=== PATIENT | female | born 1930 | race Caucasian/White ===

== ENCOUNTER 2018-09-06 21:03 | Emergency (ER) | payer OTHER ==
[~2018-09-06] VITALS: Ht 167.6 cm; Wt 71.7 kg
--- NOTE | 2018-09-06 21:55 | NUR ---
PT BIB SON C/C LEFT LEG CRAMPING X 1730 TODAY, NO TRAUMA. NAD NOTED. RESP EVEN AND UNLABORED. PT ON MONITOR IN BED 1 WITH FAMILY AT BEDSIDE. WILL CONTINUE TO MONITOR.
[2018-09-06] MEDS ORDERED: IV NS 0.9% 1,000 ML BAG IV ONE (22:30)
[2018-09-06 22:35] LABS: BASOPHILS # (AUTO) 0.1 /CMM (0.0-0.2); BASOPHILS % (AUTO) 0.9 % (0.0-2.0); EOSINOPHILS % (AUTO) 2.2 % (0.0-6.0); HEMATOCRIT 42 % (33-45); HEMOGLOBIN 13.8 g/dL (11.5-14.8); LYMPHOCYTES # (AUTO) 2.2 /CMM (0.8-4.8); LYMPHOCYTES % (AUTO) 33.5 % (20.0-44.0); MEAN CORPUSCULAR HGB CONC 33 g/dl (31.0-36.0); MEAN CORPUSCULAR VOLUME 93 fL (82-100); MONOCYTES # (AUTO) 0.6 /CMM (0.1-1.30); MONOCYTES % (AUTO) 8.9 % (2.0-12.0); NEUTROPHILS # (AUTO) 3.5 /CMM (1.8-8.9); NEUTROPHILS % (AUTO) 54.5 % (43.0-81.0); PLATELET COUNT (AUTO) 205 /CMM (150-450); RED BLOOD CELL COUNT(AUTO) 4.47 MIL/uL (4.0-5.2); WHITE BLOOD COUNT (AUTO) 6.5 K/uL (4.3-11.0)
[2018-09-06 22:39] VITALS: BP 158/75
[2018-09-06 22:42] LABS: CALCIUM, SERUM 9.5 mg/dL (8.5-10.1); CARBON DIOXIDE 29 mmol/L (21-32); CHLORIDE 104 mmol/L (98-107); CREATININE 1.3 mg/dL (0.6-1.3); GLUCOSE 97 mg/dL (74-106); POTASSIUM 4.1 mmol/L (3.5-5.1); SODIUM SERUM 140 mmol/L (136-145); UREA NITROGEN, BLOOD 20 mg/dL (7-18)
--- NOTE | 2018-09-07 00:12 | NUR ---
IV removed. Catheter intact and site benign. Pressure and 4x4 applied to site. No bleeding noted.Patient discharged to home in stable condition. Written and verbal after care instructions given. Patient verbalizes understanding of instruction. PT AMBULATORY ACCOMPANIED BY SON.
== END 2018-09-07 00:14 | disposition home or self-care (01) ==
LOC: ER 21:07
DX: R25.2 Cramp and spasm (principal); I11.0 Hypertensive heart disease with heart failure; I50.9 Heart failure, unspecified; Z98.890 Other specified postprocedural states
CPT/HCPCS: 36415; 80048; 85025; 93971; 99284; A4606; J7030

== ENCOUNTER 2019-04-15 22:14 | Emergency (ER) | payer OTHER ==
[~2019-04-15] VITALS: Ht 165.1 cm; Wt 72.6 kg
--- NOTE | 2019-04-15 22:50 | NUR ---
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 TO ER BED 3 AWAITING MED EVAL
[2019-04-15] MEDS ORDERED: KETOROLAC TROMETHAMINE 15 MG/ML VIAL ONE (23:16)
[2019-04-15 23:26] LABS: BASOPHILS % (AUTO) 0.4 % (0.0-2.0); EOSINOPHILS % (AUTO) 3.6 % (0.0-6.0); HEMATOCRIT 38 % (33-45); HEMOGLOBIN 12.5 g/dL (11.5-14.8); LYMPHOCYTES # (AUTO) 1.8 /CMM (0.8-4.8); LYMPHOCYTES % (AUTO) 31.3 % (20.0-44.0); MEAN CORPUSCULAR HGB CONC 33 g/dl (31.0-36.0); MEAN CORPUSCULAR VOLUME 95 fL (82-100); MONOCYTES # (AUTO) 0.5 /CMM (0.1-1.30); MONOCYTES % (AUTO) 9.3 % (2.0-12.0); NEUTROPHILS # (AUTO) 3.3 /CMM (1.8-8.9); NEUTROPHILS % (AUTO) 55.4 % (43.0-81.0); PLATELET COUNT (AUTO) 196 /CMM (150-450); RED BLOOD CELL COUNT(AUTO) 3.99 MIL/uL (4.0-5.2); WHITE BLOOD COUNT (AUTO) 5.9 K/uL (4.3-11.0)
[2019-04-15] MEDS ORDERED: IV NS 0.9% 500 ML BAG IV ONE (23:30)
[2019-04-15] MEDS ORDERED: KETOROLAC TROMETHAMINE INJ 30 MG/ML VIAL IV ONE (23:30)
[2019-04-15 23:33] LABS: CALCIUM, SERUM 8.7 mg/dL (8.5-10.1); CREATININE 1.3 mg/dL (0.6-1.3); POTASSIUM 4.5 mmol/L (3.5-5.1)
[2019-04-15] MEDS ORDERED: LORAZEPAM INJ 2 MG/ML VIAL ONE (23:54)
[2019-04-16] MEDS ORDERED: LORAZEPAM INJ 2 MG/ML VIAL IV ONE
[2019-04-16] MEDS ORDERED: IV NS 0.9% 500 ML BAG IV ONE (00:30)
[2019-04-16] MEDS ORDERED: MORPHINE SULFATE INJ 10 MG/ML DISP.SYRIN IV ONE (00:30)
[2019-04-16] MEDS ORDERED: MORPHINE SULFATE INJ 2 MG/ML DISP.SYRIN ONE (00:30)
[2019-04-16 01:13] VITALS: BP 152/82
--- NOTE | 2019-04-16 01:13 | NUR ---
Patient discharged to home in stable condition. Written and verbal after care instructions given. Patient verbalizes understanding of instruction.
== END 2019-04-16 01:14 | disposition home or self-care (01) ==
LOC: ER 22:20
DX: R25.2 Cramp and spasm (principal); E86.0 Dehydration; I11.0 Hypertensive heart disease with heart failure; I50.9 Heart failure, unspecified; F32.9 Major depressive disorder, single episode, unspecified; Z98.890 Other specified postprocedural states
CPT/HCPCS: 36415; 80048; 85025; 96361 ×2; 96374; 96375 ×2; 99283; J1885; J2060; J2270; J7040

== ENCOUNTER 2019-04-24 17:10 | Emergency (ER) | payer OTHER ==
[~2019-04-24] VITALS: Ht 162.6 cm; Wt 72.6 kg
--- NOTE | 2019-04-24 17:43 | NUR ---
PATIENT CAME IN TO THE ER C/O LEFT LEG CRAMPING,SEEN HERE A WEEK AGO FOR SAME PROBLEM. ON ROOM AIR, BREATHING EVENLY AND UNLABORED. CONNECTED TO THE MONITOR AND PULSE OX. WILL CONTINUE TO MONITOR ACCORDINGLY.
[2019-04-24] MEDS ORDERED: GABAPENTIN 100 MG CAPSULE PO ONE (18:00)
[2019-04-24] MEDS ORDERED: GABAPENTIN 100 MG CAPSULE ONE (18:05)
[2019-04-24 18:30] VITALS: BP 116/81
--- NOTE | 2019-04-24 18:31 | NUR ---
Patient discharged to home in stable condition. Written and verbal after care instructions given. Patient verbalizes understanding of instruction.
== END 2019-04-24 18:31 | disposition home or self-care (01) ==
LOC: ER 17:16
DX: G89.29 Other chronic pain (principal); M79.662 Pain in left lower leg; I11.0 Hypertensive heart disease with heart failure; I50.9 Heart failure, unspecified; F32.9 Major depressive disorder, single episode, unspecified; Z98.890 Other specified postprocedural states

== ENCOUNTER 2019-06-09 16:35 | Inpatient (IN) | payer OTHER ==
[~2019-06-09] VITALS: Ht 167.6 cm; Wt 74.0 kg
--- NOTE | 2019-06-09 16:40 | NUR ---
BIB SON C/O DIZZINESS AND GEN WEAKNESS SINCE THIS MORNING. PATIENT HUNGARIAN SPEAKING, A/OX4, BREATHING EVEN AND UNLABORED, NO SOB NOTED, ATTACHED TO THE SIGNS AND DISPLAYS SALESPERSON.
[2019-06-09 16:59] LABS: BASOPHILS # (AUTO) 0.1 /CMM (0.0-0.2); BASOPHILS % (AUTO) 0.7 % (0.0-2.0); EOSINOPHILS % (AUTO) 0.3 % (0.0-6.0); HEMATOCRIT 37 % (33-45); HEMOGLOBIN 11.9 g/dL (11.5-14.8); LYMPHOCYTES # (AUTO) 1.1 /CMM (0.8-4.8); LYMPHOCYTES % (AUTO) 10.3 % (20.0-44.0); MEAN CORPUSCULAR HGB CONC 32 g/dl (31.0-36.0); MEAN CORPUSCULAR VOLUME 95 fL (82-100); MONOCYTES # (AUTO) 0.6 /CMM (0.1-1.30); MONOCYTES % (AUTO) 5.3 % (2.0-12.0); NEUTROPHILS % (AUTO) 83.4 % (43.0-81.0); PLATELET COUNT (AUTO) 189 /CMM (150-450); RED BLOOD CELL COUNT(AUTO) 3.87 MIL/uL (4.0-5.2); WHITE BLOOD COUNT (AUTO) 10.7 K/uL (4.3-11.0)
[2019-06-09] MEDS ORDERED: IV NS 0.9% 1,000 ML BAG IV ONE (17:00)
[2019-06-09 17:10] LABS: CALCIUM, SERUM 8.8 mg/dL (8.5-10.1); CREATININE 1.3 mg/dL (0.6-1.3); POTASSIUM 4.5 mmol/L (3.5-5.1)
--- NOTE | 2019-06-09 17:14 | NUR ---
PER DR. KAN GIVE ONLY 1L OF NS, CANCEL THE 2ND LITER OF NS DUE TO CHF.
--- NOTE | 2019-06-09 17:16 | NUR ---
FIXTURE BUILDER AT BEDSIDE FOR X-RAY.
[2019-06-09 17:23] LABS: ALBUMIN 3.7 g/dL (3.4-5.0); BILIRUBIN,DIRECT 0.1 mg/dL (0.0-0.2); BILIRUBIN,TOTAL 0.7 mg/dL (0.2-1.0); TOTAL PROTEIN, SERUM 7.6 g/dL (6.4-8.2)
[2019-06-09 17:29] LABS: APPEARANCE,URINE Turbid (CLEAR); BILIRUBIN,URINE Negative (NEGATIVE); BLOOD, URINE Trace-intact Ery/uL (NEGATIVE); COLOR,URINE Yellow (YELLOW); KETONES,URINE Negative (NEGATIVE); LEUKOCYTE ESTERASE ,URINE Small (NEGATIVE); NITRITE, URINE Negative (NEGATIVE); PROTEIN,URINE Negative (NEGATIVE); UGLUCOSE Negative (NEGATIVE); UROBILINOGEN,URINE 0.2 EU/dL (0.2)
--- NOTE | 2019-06-09 17:41 | NUR ---
CALLED NURSING SUP FOR TELE BED.
[2019-06-09 17:46] LABS: BACTERIA,URINE Moderate /HPF (None Seen); RBC,URINE 0-2 /HPF (0-2); SQUAMOUS EPITHELIAL CELL,UR Few /HPF (None Seen)
--- NOTE | 2019-06-09 18:07 | NUR ---
NEO PIERRE SEEN AT BEDSIDE FOR EVAL.
[2019-06-09] MEDS ORDERED: IV NS 0.9% 1,000 ML IV PRN (18:12)
[2019-06-09] MEDS ORDERED: ACETAMINOPHEN 325 MG TABLET PO PRN (18:30)
[2019-06-09] MEDS ORDERED: MAG HYDROX/AL HYDROX/SIMETH 30 ML UDC PO PRN (18:30)
[2019-06-09] MEDS ORDERED: ONDANSETRON HCL/PF 4 MG/2 ML VIAL IVP PRN (18:30)
[2019-06-09] MEDS ORDERED: MORPHINE SULFATE INJ 2 MG/ML DISP.SYRIN IV PRN (18:30)
[2019-06-09] MEDS ORDERED: Z GUARD REMEDY 2 OZ OINT TP PRN (18:30)
[2019-06-09] MEDS ORDERED: MAGNESIUM HYDROXIDE 30 ML UDC PO PRN (18:30)
[2019-06-09] MEDS ORDERED: HYDROCODONE/APAP 5/325MG 1 EACH TABLET PO PRN (18:30)
--- NOTE | 2019-06-09 19:03 | NUR ---
NURSING SUP GAVE TELE BED 310-2.
--- NOTE | 2019-06-09 19:12 | NUR ---
REPORT GIVEN TO PENNY SHETTY.
--- NOTE | 2019-06-09 19:38 | NUR ---
transported to floor via acls protocol
[2019-06-09 20:00] VITALS: BP 117/60
--- NOTE | 2019-06-09 20:00 | NUR ---
propulsion motor and generator repairerstaple cutter notes Received Pt from ER. Pt arrived at the unit at with a gurney with ACLS protocol. Pt is a 88 YO Female with a diagnose of dizziness, weakness, tachycardia and UTI by Dr. Murillo. Pt is alert and orientedX4. Pt speaks [place] and able to make needs known. Pt's son and daughter at the bedside. Tele monitor showed sinus tachy 110. IV sites at R wrist # 20 is clean, intact, patent and flush without resistance. [place] Pt and family to the room, use amenities and call light. Pt's belongings was checked by OCTAVIA Choi. Skin checked and performed. Skin issues pictures is taken and placed at Pt's chart. Received admission orders from Dr. Murillo. Instructed to call. Safety precautions is maintained. Bed at low position, brakes locked, side rails upX3 and call light is within reach. Will continue to monitor.
[2019-06-09] MEDS: ENOXAPARIN SODIUM 40 MG/0.4 ML DISP.SYRIN SQ SCH (20:44)
[2019-06-09] MEDS ORDERED: CEFTRIAXONE 1 G VIAL ONE (21:28)
[2019-06-09] MEDS: CEFTRIAXONE 1 G in IV D5W 50 ML IV SCH (21:30)
[2019-06-09] MEDS ORDERED: CLOP75TA15 PO (22:43)
[2019-06-09] MEDS ORDERED: FURO-145 PO (22:43)
[2019-06-09] MEDS ORDERED: ESCI20TA PO (22:43)
[2019-06-09] MEDS ORDERED: SACU1TAB PO (22:43)
[2019-06-09] MEDS ORDERED: CETI-102 PO (22:43)
[2019-06-09] MEDS ORDERED: POTA10CA43 PO (22:43)
[2019-06-09] MEDS ORDERED: DICL100G16 TP (22:43)
[2019-06-09] MEDS ORDERED: ATOR10TA PO (22:43)
[2019-06-09] MEDS ORDERED: ALLO100T PO (22:43)
[2019-06-09] MEDS ORDERED: CALC-20 PO (22:43)
[2019-06-09] MEDS ORDERED: GABA-532 PO (22:43)
[2019-06-09] MEDS ORDERED: CARV6.25 PO (22:43)
[2019-06-09] MEDS ORDERED: ACET-2605 PO (22:43)
[2019-06-10] VITALS (7 sets, daily range): BP systolic 86–129; BP diastolic 40–76
--- NOTE | 2019-06-10 00:41 | NUR ---
edgerman notes Informed and contacted MARY ELLEN Suggs about Pt's BP is low. Pt has a IV fluid infusing NS @ 75 ml/hr. Pt's stated Pt's son gave pt coreg 3 mg before. Right arm BP 88/40 pulse 96. Right leg BP 79/37. Left leg BP 81/34 pulse 97. Pt is asymptomatic, no dizziness, no headache. No S/S of distress noted. Charge nurse is aware and informed. Awaiting for ordered. Will continue to monitor.
--- NOTE | 2019-06-10 00:45 | NUR ---
gas or petroleum operator notes Received order from MARY ELLEN Suggs to increase ivf and have small bolus and instruct the family not to give meds from home. Orders carried out. Charge nurse is aware and informed.
[2019-06-10] MEDS ORDERED: IV NS 0.9% 500 ML IV ONE (01:00)
[2019-06-10] MEDS: IV NS 0.9% 1,000 ML IV PRN ×2 (03:45→12:11)
--- NOTE | 2019-06-10 04:00 | NUR ---
felt carbonizer notes Pt's BP 86/50, HR 95, RESP 18, TEMP 98.5, O2 SAT IS 94. Pt also receiving IV fluids NS @ 100ml/hr. Charge nurse is aware and informed. Will continue to monitor.
--- NOTE | 2019-06-10 07:00 | NUR ---
candy starch mold printer closing notes Pt is resting in bed comfortably. Pt is alert and oriented4 and able to make needs known. Respiration is normal. No SOB. No S/S of distress noted. IV sites at R wrist is clean, intact, patent and infusing well NS @ 100ml/hr. Tele monitor showed sinus rhytm at 90. Routine meds were given as ordered. All needs met and attended. Kept Pt clean, dry and comfortable. Instructed to call. Safety precautions is maintained. Bed at low position, brakes locked, side rails upX3 and call light is within reach. Will endorse to morning nurse for BRIELLE.
[2019-06-10] MEDS ORDERED: PANTOPRAZOLE 40 MG TABLET.DR PO SCH (07:30)
[2019-06-10 07:53] LABS: BASOPHILS % (AUTO) 0.3 % (0.0-2.0); EOSINOPHILS % (AUTO) 0.7 % (0.0-6.0); HEMATOCRIT 31 % (33-45); LYMPHOCYTES % (AUTO) 24.7 % (20.0-44.0); MEAN CORPUSCULAR HGB CONC 33 g/dl (31.0-36.0); MEAN CORPUSCULAR VOLUME 95 fL (82-100); MONOCYTES # (AUTO) 0.7 /CMM (0.1-1.30); MONOCYTES % (AUTO) 8.2 % (2.0-12.0); NEUTROPHILS # (AUTO) 5.3 /CMM (1.8-8.9); NEUTROPHILS % (AUTO) 66.1 % (43.0-81.0); PLATELET COUNT (AUTO) 161 /CMM (150-450); RED BLOOD CELL COUNT(AUTO) 3.23 MIL/uL (4.0-5.2)
--- NOTE | 2019-06-10 08:00 | NUR ---
MS RN NOTES PATIENT IN BED RESTING NO SOB ACUTE DISTRESS NOTED. PERIPHERAL IV INTACT PATENT RUNNING PRESCRIBED FLUIDS, BED IN LOW LOCKED POSITION. CALL LIGHT WITHIN REACH. WILL CONTINUE TO MONITOR.
[2019-06-10 08:19] LABS: ALBUMIN 2.7 g/dL (3.4-5.0); BILIRUBIN,TOTAL 0.7 mg/dL (0.2-1.0); CALCIUM, SERUM 7.9 mg/dL (8.5-10.1); CREATININE 1.2 mg/dL (0.6-1.3); MAGNESIUM 1.6 mg/dL (1.8-2.4); PHOSPHORUS 2.8 mg/dL (2.5-4.9); POTASSIUM 4.1 mmol/L (3.5-5.1); TOTAL PROTEIN, SERUM 5.9 g/dL (6.4-8.2)
[2019-06-10 08:29] LABS: THYROID STIMULATING HORMONE 0.45 uIU/mL (0.358-3.74)
[2019-06-10] MEDS ORDERED: CLOPIDOGREL BISULFATE 75 MG TABLET PO SCH (09:00)
[2019-06-10] MEDS: CARVEDILOL 6.25 MG TABLET PO SCH ×2 (09:00→17:16)
[2019-06-10] MEDS ORDERED: ALLOPURINOL 100 MG TABLET PO SCH (09:00)
[2019-06-10] MEDS ORDERED: MULTIVITAMINS,THERAGRAN 1 UDTAB TABLET PO SCH (09:00)
[2019-06-10] MEDS ORDERED: DICLOFENAC TOPICAL 100 GM GEL..GM. TP SCH (09:00)
[2019-06-10] MEDS ORDERED: ATORVASTATIN 10 MG TABLET PO SCH (09:00)
[2019-06-10] MEDS ORDERED: ESCITALOPRAM OXALATE (10 MG) 10 MG TABLET PO SCH (09:00)
[2019-06-10] MEDS ORDERED: cetrizine 10 MG TABLET PO SCH (09:00)
[2019-06-10] MEDS: CALCIUM CARB 600MG /VIT D 1 EACH TABLET PO SCH ×2 (09:00→17:00)
[2019-06-10] MEDS: GABAPENTIN 100 MG CAPSULE PO SCH ×2 (09:50→17:15)
[2019-06-10] MEDS: Magnesium 1GM/D5W 100ML PREMIX 100 ML IV SCH ×2 (09:54→11:23)
[2019-06-10] MEDS ORDERED: SACU1TAB PO ×2 (10:22→10:23)
[2019-06-10] MEDS ORDERED: FERR325T23 PO (11:25)
[2019-06-10] MEDS ORDERED: CEPH-570 PO (11:25)
[2019-06-10] MEDS: ENTRESTO PO SCH ×2 (12:00→17:00)
[2019-06-10] MEDS: FERROUS SULFATE (325 MG) 325 MG/TAB TABLET PO SCH ×2 (12:11→17:15)
--- NOTE | 2019-06-10 17:30 | NUR ---
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 INFORMED PATIENT SHE STATES HER SON WILL PICK IT UP.
[2019-06-10] MEDS: ENOXAPARIN SODIUM 40 MG/0.4 ML DISP.SYRIN SQ SCH (18:30)
--- NOTE | 2019-06-10 19:32 | NUR ---
MS RN NOTES PATIENT IN BED RESTING WITH DAUGHTER AT BEDSIDE. ALL DISCHARGE INSTRUCTIONS PROVIDED TO PATIENT AND DAUGHTER, VERBALIZED UNDERSTANDING. DISCHARGE PROTOCOL FOLLOWED. PICTURES WERE NOT TAKEN SINCE THEY WERE TAKEN LAST NIGHT, PATIENT REFUSED. ENDORSED CARE TO PM SHIFT FOR DISCHARGE. ALL BELONGINGS ACCOUNTED FOR, BELONGING LIST SIGNED. PATIENT WEARING LOWER DENTURES. ALL JEWELER ACCOUNTED FOR. PATIENT IN STABLE CONDITION. HAS HECTOR. SCHEDULED WITH MD TOMORROW MORNING.
[2019-06-10] MEDS: CEFTRIAXONE 1 G in IV D5W 50 ML IV SCH (20:04)
--- NOTE | 2019-06-10 20:42 | NUR ---
RN NOTES RECEIVED REPORT FROM SENA FENTON. PATIENT IS FOR HOME ANYTIME, JUST NEEDED TO ADMINISTER LAST DOSE OF CEFTRIAXONE IV. PATIENT IS RESTING COMFORTABLY UPON ROUNDS, NO SIGNS OF DISTRESS, DAUGHTER AT BEDSIDE, NO COMPLAINTS OF DISCOMFORT.
--- NOTE | 2019-06-10 21:00 | NUR ---
RN NOTES ALL NEEDS ATTENDED AT MET, LAST DOSE OF IV ATB GIVEN, DISCHARGE PLANNING AND EDUCATION PROVIDED, VERBALIZES UNDERSTANDING, BELONGINGS ACCOUNTED FOR, PATIENT LEFT THE UNIT ACCOMPANIED BY DAUGHTER, PATIENT IS MEDICALLY STABLE, DENIES PAIN OR DISCOMFORT. CHARGE NURSE AWARE OF DISCHARGED.
== END 2019-06-10 21:00 | disposition home or self-care (01) | DRG 463 ==
LOC: ER 16:42 → TELE 19:11 → MED 06-10 08:44
PROVIDERS: ADMIT Nurse Practitioner Acute Care; ATTEND Nurse Practitioner Acute Care
DX: N39.0 Urinary tract infection, site not specified (principal); N17.0 Acute kidney failure with tubular necrosis; E86.1 Hypovolemia; D68.59 Other primary thrombophilia; I11.0 Hypertensive heart disease with heart failure; E87.1 Hypo-osmolality and hyponatremia; I50.9 Heart failure, unspecified; E86.9 Volume depletion, unspecified; F32.9 Major depressive disorder, single episode, unspecified; B96.89 Other specified bacterial agents as the cause of diseases classified elsewhere; Z87.440 Personal history of urinary (tract) infections; Z96.652 Presence of left artificial knee joint; G89.29 Other chronic pain; Z74.09 Other reduced mobility; M62.84 Sarcopenia; Z79.01 Long term (current) use of anticoagulants; Z79.899 Other long term (current) drug therapy
CPT/HCPCS: 36415; 71045-TC; 80048-TC; 80053-TC; 80061-TC; 80076-TC; 81000-TC; 83540-TC; 83605-TC; 83735-TC; 83880; 84100-TC; 84443-TC; 84484-TC; 85025-TC; 85730-TC; 87040-TC; 87081-TC; 87086-TC; 93307-TC; 97116-TC; 97530-TC; G0378; J0696; J1650; J3475; J7030; J7040; J7060

== ENCOUNTER 2020-10-12 21:48 | Emergency (ER) | payer OTHER ==
[~2020-10-12] VITALS: Ht 165.1 cm; Wt 70.3 kg
[~2020-10-12 21:48] MED LIST: ACET-2605 PO; ALLO100T PO; ATOR10TA PO; CALC-1180 PO; CARV6.25 PO; CEPH-570 PO; CETI-90 PO; CLOP75TA15 PO; DICL100G16 TP; ESCI20TA PO; FERR325T23 PO; FURO-145 PO; GABA-532 PO; POTA10CA43 PO; SACU1TAB PO
--- NOTE | 2020-10-12 21:48 | NUR ---
TO ER BED 8 BIB C/O INTERMITTENT DIZZINESS WITH NAUSEA X1 1/2WEEKS, WORSE IN THE PAST 2 DAYS. STARTED WHEN PMD CHANGED MEDICATION FROM CITALOPRAM TO SERTRALINE. PT REPORTS THAT PT HAS BEEN CRYING MORE, FELLING SAD AND HAVING A HARD TIME COPING SINCE MEDICATION CHANGE. PT AAOX4 NO ACUTE DISTRESS NOTED, RESP EVEN AND UNLABORE.D PLACE PT ON CARDIAC MONITORING, CONTINUOUS POX. PENDING ER MD OKEEFE.
[2020-10-12 22:23] LABS: BASOPHILS % (AUTO) 0.7 % (0.0-2.0); HEMATOCRIT 37 % (33-45); HEMOGLOBIN 12.1 g/dL (11.5-14.8); LYMPHOCYTES # (AUTO) 1.9 /CMM (0.8-4.8); LYMPHOCYTES % (AUTO) 34.4 % (20.0-44.0); MEAN CORPUSCULAR HGB CONC 33 g/dl (31.0-36.0); MEAN CORPUSCULAR VOLUME 92 fL (82-100); MONOCYTES # (AUTO) 0.6 /CMM (0.1-1.30); MONOCYTES % (AUTO) 10.2 % (2.0-12.0); NEUTROPHILS # (AUTO) 2.9 /CMM (1.8-8.9); NEUTROPHILS % (AUTO) 51.7 % (43.0-81.0); PLATELET COUNT (AUTO) 207 /CMM (150-450); RED BLOOD CELL COUNT(AUTO) 3.97 MIL/uL (4.0-5.2); WHITE BLOOD COUNT (AUTO) 5.5 K/uL (4.3-11.0)
[2020-10-12 22:30] LABS: CALCIUM, SERUM 9.8 mg/dL (8.5-10.1); CARBON DIOXIDE 25 mmol/L (21-32); CHLORIDE 106 mmol/L (98-107); CREATININE 1.8 mg/dL (0.6-1.3); GLUCOSE 100 mg/dL (74-106); POTASSIUM 4.4 mmol/L (3.5-5.1); SODIUM SERUM 141 mmol/L (136-145); UREA NITROGEN, BLOOD 42 mg/dL (7-18)
[2020-10-12] MEDS ORDERED: IV NS 0.9% 500 ML BAG IV ONE (22:30)
[2020-10-12 22:36] LABS: ALANINE AMINOTRANSFERASE 12 U/L (12-78); ALBUMIN 3.2 g/dL (3.4-5.0); ALKALINE PHOSPHATASE 67 U/L (46-116); ASPARTATE AMINOTRANSFERASE 13 U/L (15-37); BILIRUBIN,DIRECT 0.1 mg/dL (0.0-0.2); BILIRUBIN,TOTAL 0.4 mg/dL (0.2-1.0); TOTAL PROTEIN, SERUM 7.2 g/dL (6.4-8.2)
[2020-10-13 00:01] VITALS: BP 117/62
--- NOTE | 2020-10-13 00:01 | NUR ---
Patient discharged to home in stable condition. Written and verbal after care instructions given. Patient verbalizes understanding of instruction.IV removed. Catheter intact and site benign. Pressure and 4x4 applied to site. No bleeding noted. Assisted to car via wheelchair
== END 2020-10-13 00:01 | disposition home or self-care (01) ==
LOC: ER 21:51
DX: R42 Dizziness and giddiness (principal); T43.225A Adverse effect of selective serotonin reuptake inhibitors, initial encounter; F32.9 Major depressive disorder, single episode, unspecified; I11.0 Hypertensive heart disease with heart failure; I50.9 Heart failure, unspecified; Z79.899 Other long term (current) drug therapy; Z98.890 Other specified postprocedural states; Y92.89 Other specified places as the place of occurrence of the external cause
CPT/HCPCS: 36415; 70450; 71045; 80048; 80076; 83880; 84484; 85025; 85730; 93005; 99285; J7040

== ENCOUNTER 2021-01-15 12:58 | Inpatient (IN) | payer OTHER ==
[~2021-01-15] VITALS: Ht 167.6 cm; Wt 75.7 kg
--- NOTE | 2021-01-15 13:08 | NUR ---
The patient BIB son to ER, C/O severe right knee - sent by Dr. Duncan - R/O septic right knee. Rates pain 10/10. Warm blanket provided for comfort. Will continue to monitor the patient.
--- NOTE | 2021-01-15 13:21 | NUR ---
CALLED EVARISTO BOLANOS FOR CONSULT.
[2021-01-15 13:41] LABS: BASOPHILS % (AUTO) 0.6 % (0.0-2.0); EOSINOPHILS % (AUTO) 1.9 % (0.0-6.0); HEMATOCRIT 35 % (33-45); HEMOGLOBIN 11.4 g/dL (11.5-14.8); LYMPHOCYTES # (AUTO) 1.8 K/uL (0.8-4.8); MEAN CORPUSCULAR HGB CONC 33 g/dl (31.0-36.0); MEAN CORPUSCULAR VOLUME 95 fL (82-100); MONOCYTES # (AUTO) 0.9 K/uL (0.1-1.30); MONOCYTES % (AUTO) 11.2 % (2.0-12.0); NEUTROPHILS # (AUTO) 5.3 K/uL (1.8-8.9); NEUTROPHILS % (AUTO) 64.3 % (43.0-81.0); PLATELET COUNT (AUTO) 202 K/uL (150-450); RED BLOOD CELL COUNT(AUTO) 3.65 MIL/uL (4.0-5.2); WHITE BLOOD COUNT (AUTO) 8.2 K/uL (4.3-11.0)
[2021-01-15] MEDS ORDERED: SACU1TAB7 PO (13:44)
[2021-01-15] MEDS ORDERED: OMEP20CA15 PO (13:44)
[2021-01-15] MEDS ORDERED: [UNRECOGNIZED DRUG - OTHER] PO (13:44)
[2021-01-15] MEDS ORDERED: ALEN70TA80 PO (13:44)
[2021-01-15] MEDS ORDERED: MIRT-121 PO (13:44)
[2021-01-15] MEDS ORDERED: RETINAVITES PO (13:44)
[2021-01-15] MEDS ORDERED: IV NS 0.9% 500 ML IV ONE (14:00)
[2021-01-15 14:03] LABS: CALCIUM, SERUM 8.9 mg/dL (8.5-10.1); CARBON DIOXIDE 24 mmol/L (21-32); CHLORIDE 103 mmol/L (98-107); CREATININE 1.6 mg/dL (0.6-1.3); GLUCOSE 101 mg/dL (74-106); POTASSIUM 4.8 mmol/L (3.5-5.1); SODIUM SERUM 138 mmol/L (136-145); UREA NITROGEN, BLOOD 32 mg/dL (7-18)
[2021-01-15] MEDS ORDERED: LIDOCAINE 1%-EPI 1:100,000 20 ML VIAL ONE (14:36)
[2021-01-15] MEDS ORDERED: LIDOCAINE 1%-EPI 1:100,000 50 ML VIAL IJ ONE (15:00)
--- NOTE | 2021-01-15 15:30 | NUR ---
CALLED NURSING SUP FOR M/S BED.
[2021-01-15 15:31] LABS: C-REACTIVE PROTEIN 0.8 mg/dL (0.0-0.9)
--- NOTE | 2021-01-15 16:28 | NUR ---
PAGED DR. STROUD.
[2021-01-15] MEDS ORDERED: MORPHINE SULFATE INJ 2 MG/ML DISP.SYRIN IV ONE (16:30)
--- NOTE | 2021-01-15 16:30 | NUR ---
ROOM 315-2
--- NOTE | 2021-01-15 16:43 | NUR ---
REPORT GIVEN TO NURSE PHAN
[2021-01-15] MEDS ORDERED: MORPHINE SULFATE INJ 2 MG/ML DISP.SYRIN ONE (16:50)
--- NOTE | 2021-01-15 16:55 | NUR ---
RN NOTE PT IN STABLE CONDITION. SAFETY MEASURES IN PLACE. SIDE RAILS RAISED. BED LOWERED. CALL LIGHT WITHIN REACH. REPORT GIVEN TO ANA FOR BRIELLE.
--- NOTE | 2021-01-15 17:20 | NUR ---
MS LITIGATION EXAMINER NOTE RECEIVED PATIENT FROM ER. PATIENT WAS BIB SON - RECOMMENDED OF DR. MCKEON - C/O RIGHT KNEE PAIN AND SWELLING. A/O X4 - SPEAKS SAMMARINESE BUT UNDERSTANDS NAURUAN. STABLE ON ROOM AIR - NO SOB OR DISTRESS NOTED. PATIENT STATES 10/10 PAIN TO RIGHT KNEE. ARTHROCENTESIS DONE AT BEDSIDE IN ER. SKIN INTACT. PATIENT IS NORMALLY AMBULATORY BUT STATES SHE IS IN TOO MUCH PAIN TO WALK. SON AND DAUGHTER AT BEDSIDE. SAFETY MEASURES IN PLACE. CALL LIGHT WITHIN REACH. WILL CONTINUE TO MONITOR.
[2021-01-15 17:30] VITALS: BP 101/49
[2021-01-15] MEDS ORDERED: ZOLPIDEM TARTRATE 5 MG TABLET PO PRN (18:00)
[2021-01-15] MEDS ORDERED: MAG HYDROX/AL HYDROX/SIMETH 30 ML UDC PO PRN (18:00)
[2021-01-15] MEDS ORDERED: MAGNESIUM HYDROXIDE 30 ML UDC PO PRN (18:00)
[2021-01-15] MEDS ORDERED: ACETAMINOPHEN 325 MG TABLET PO PRN (18:00)
[2021-01-15] MEDS ORDERED: Z GUARD REMEDY 2 OZ OINT TP PRN (18:00)
--- NOTE | 2021-01-15 18:55 | NUR ---
MS RN CLOSING NOTE PATIENT CURRENTLY LYING IN BED, AWAKE. DAUGHTER AT BEDSIDE. A/O X4 - SPEAKS SLOVENIAN BUT UNDERSTANDS SYRIAC. STABLE ON ROOM AIR - NO SOB OR DISTRESS NOTED. PATIENT STATES 10/10 PAIN TO RIGHT KNEE. IV ACCESS TO LEFT FOREARM #20 - S/L. SKIN INTACT. PATIENT IS NORMALLY AMBULATORY BUT STATES SHE IS IN TOO MUCH PAIN TO WALK. PATIENT STATED SHE DOES NOT WANT HARRIS CATHETER. SAFETY MEASURES IN PLACE. CALL LIGHT WITHIN REACH. WILL ENDORSE TO RETAIL BANKER NURSE FOR BRIELLE.
[2021-01-15] MEDS ORDERED: VANCOMYCIN 1 GM in IV D5W 250 ML IV ONE (19:00)
--- NOTE | 2021-01-15 19:47 | NUR ---
MS RN OPENING NOTE A/OX4; ABLE TO MAKE NEEDS KNOWN. TOLERATING ROOM AIR WELL WITH NO SOB. LFA #20G S/L; PATENT AND INTACT. FAMILY AT BEDSIDE. MEASURES IN PLACE: BED IN LOWEST LOCKED POSITION, SIDE RAILS UPX2, CALL LIGHT WITHIN REACH, BED ALARMS ON. NO ACUTE DISTRESS NOTED. WILL CONTINUE PLAN OF CARE.
[2021-01-15 20:00] VITALS: BP 113/51
[2021-01-15] MEDS: CEFTRIAXONE 1 G in IV D5W 50 ML IV SCH (20:13)
[2021-01-15] MEDS ORDERED: PANT20TA17 PO (20:53)
[2021-01-15] MEDS: MORPHINE SULFATE INJ 2 MG/ML DISP.SYRIN IV PRN (21:30)
--- NOTE | 2021-01-15 21:30 | NUR ---
MS RN NOTE - PAIN PATIENT C/O 10/10 RIGHT KNEE PAIN. ADMINISTERED MORPHINE ORDERED WILL CONTINUE TO REASSESS PAIN IN 30 MINUTES.
--- NOTE | 2021-01-15 21:46 | NUR ---
MS RN NOTE - HOME MEDS HOME MEDS NOT IN EMAR YET. NOTIFIED MAYLIN FABRICATION SUPERVISOR TO RECONCILE HOME MEDS LIST. FAMILY AT BEDSIDE AND INSISTED PATIENT NEEDED TO TAKE HOME MEDS. HOME MEDS ADMINISTERED: CARVEDILOL 6.25MG, ENTRESTO 49MG, MIRTAZAPINE 15MG, ATORVASTATIN 20MG. CHARGE NURSE AWARE. VS WNL
[2021-01-15] MEDS: MIRTAZAPINE 15 MG TABLET PO SCH (22:00)
[2021-01-15] MEDS ORDERED: LORAZEPAM 0.5 MG TABLET PO PRN (22:00)
[2021-01-15] MEDS: ATORVASTATIN 10 MG TABLET PO SCH (22:40)
[2021-01-16] MEDS: HYDROCODONE/APAP 5/325MG TABLET PO PRN (00:31)
--- NOTE | 2021-01-16 00:31 | NUR ---
MS RN NOTE - PAIN PT C/O 01/09 RIGHT KNEE PAIN. ADMINISTERED NORCO ORDERED. WILL CONT TO REASSESS FOR PAIN IN 30 MINUTES.
[2021-01-16] MEDS: ONDANSETRON HCL/PF 4 MG/2 ML VIAL IVP PRN ×2 (03:07→11:11)
--- NOTE | 2021-01-16 03:07 | NUR ---
MS RN NOTE - NAUSEA PT C/O OF NAUSEA. NO EMESIS NOTED. ADMINISTERED ZOFRAN ORDERED. WILL CONTINUE TO REASSESS FOR N/V IN 30 MINUTES.
[2021-01-16] MEDS: MORPHINE SULFATE INJ 2 MG/ML DISP.SYRIN IV PRN (05:14)
[2021-01-16] MEDS ORDERED: ALENDRONATE 70 MG TABLET PO SCH (06:00)
[2021-01-16 06:37] LABS: BASOPHILS % (AUTO) 0.3 % (0.0-2.0); EOSINOPHILS % (AUTO) 0.4 % (0.0-6.0); HEMATOCRIT 33 % (33-45); LYMPHOCYTES % (AUTO) 22.7 % (20.0-44.0); MEAN CORPUSCULAR HGB CONC 33 g/dl (31.0-36.0); MEAN CORPUSCULAR VOLUME 95 fL (82-100); MONOCYTES # (AUTO) 1.2 K/uL (0.1-1.30); MONOCYTES % (AUTO) 14.2 % (2.0-12.0); NEUTROPHILS # (AUTO) 5.5 K/uL (1.8-8.9); NEUTROPHILS % (AUTO) 62.4 % (43.0-81.0); PLATELET COUNT (AUTO) 198 K/uL (150-450); RED BLOOD CELL COUNT(AUTO) 3.48 MIL/uL (4.0-5.2); WHITE BLOOD COUNT (AUTO) 8.8 K/uL (4.3-11.0)
--- NOTE | 2021-01-16 06:44 | NUR ---
MS RN CLOSING NOTE A/OX4; ABLE TO MAKE NEEDS KNOWN. TOLERATING ROOM AIR WELL WITH NO SOB. LFA #20G S/L; PATENT AND INTACT. FOSAMAX XR 70MG NOT AVAILABLE; ATTEMPTED TO CALL PHARMACY WILL NO CALL RETURN; CHARGE NURSE AWARE. SAFETY MEASURES IN PLACE: BED IN LOWEST LOCKED POSITION, SIDE RAILS UPX2, CALL LIGHT WITHIN REACH, BED ALARMS ON. NO ACUTE DISTRESS NOTED. WILL ENDORSE PLAN OF CARE TO ONCOMING MORNING RN.
[2021-01-16 06:46] LABS: CALCIUM, SERUM 8.9 mg/dL (8.5-10.1); CARBON DIOXIDE 24 mmol/L (21-32); CHLORIDE 105 mmol/L (98-107); CREATININE 1.5 mg/dL (0.6-1.3); GLUCOSE 107 mg/dL (74-106); MAGNESIUM 1.6 mg/dL (1.8-2.4); PHOSPHORUS 3.7 mg/dL (2.5-4.9); POTASSIUM 4.2 mmol/L (3.5-5.1); SODIUM SERUM 139 mmol/L (136-145); UREA NITROGEN, BLOOD 27 mg/dL (7-18)
[2021-01-16 07:09] LABS: CHOLESTEROL 151 mg/dL (<200); HDL CHOLESTEROL 70 mg/dL (40-60); LDL 69 mg/dL (0-99); THYROID STIMULATING HORMONE 0.324 uIU/mL (0.358-3.74); TRIGLYCERIDES 70 mg/dL (30-150)
--- NOTE | 2021-01-16 07:20 | NUR ---
MS RN OPENING NOTE PATIENT IS ALERT AND ORIENTED X 4. PATIENT ABLE TO MAKE NEEDS KNOWN. TOLERATING ROOM AIR WELL WITH NO SOB WITH EVEN AND UNLABORED BREATHING. PATIENT WITH LFA #20G S/L; PATENT AND INTACT. SAFETY MEASURES IN PLACE WITH BED IN LOWEST LOCKED POSITION, AND LOCKED, SIDE RAILS UPX2, CALL LIGHT AND BEDSIDE TABLE WITHIN REACH AT ALL TIMES, BED ALARMS ON. NO ACUTE DISTRESS NOTED. WILL CONTINUE PLAN OF CARE AND MONITOR PATIENT.
--- NOTE | 2021-01-16 07:40 | NUR ---
MS RN NOTES PATIENT SEEN BY ORTHOPEDIC HUMAN PERFORMANCE PROFESSOR WITH NO NEW ORDERS AT THIS TIME.
[2021-01-16 08:00] VITALS: BP 102/55
[2021-01-16] MEDS: CLOPIDOGREL BISULFATE 75 MG TABLET PO SCH (09:07)
[2021-01-16] MEDS: PANTOPRAZOLE 40 MG TABLET.DR PO SCH (09:07)
[2021-01-16] MEDS: ALLOPURINOL 100 MG TABLET PO SCH (09:07)
[2021-01-16] MEDS: MULTIVITAMIN/LUTEIN/MINERALS 1 TAB PO SCH (09:07)
[2021-01-16] MEDS: CARVEDILOL 3.125 MG TABLET PO SCH ×2 (09:08→21:28)
[2021-01-16] MEDS: Magnesium 1GM/D5W 100ML PREMIX 100 ML IV SCH ×2 (11:57→13:13)
--- NOTE | 2021-01-16 12:50 | NUR ---
MS RN NOTES PATIENT SEEN BY DR. STROUD WITH FAMILY AT BEDSIDE. NO NEW ORDER AT THIS TIME.
[2021-01-16 16:00] VITALS: BP 86/40
--- NOTE | 2021-01-16 19:00 | NUR ---
MS RN CLOSING NOTE PATIENT IS ALERT AND ORIENTED X 4. PATIENT ABLE TO MAKE NEEDS KNOWN. TOLERATING ROOM AIR WELL WITH NO SOB WITH EVEN AND UNLABORED BREATHING. PATIENT WITH LFA #20G S/L; PATENT AND INTACT. SAFETY MEASURES IN PLACE WITH BED IN LOWEST LOCKED POSITION, AND LOCKED, SIDE RAILS UPX2, CALL LIGHT AND BEDSIDE TABLE WITHIN REACH AT ALL TIMES, BED ALARMS ON. NO ACUTE DISTRESS NOTED. WILL ENDORSE TO NEXT SHIFT FOR CONTINUITY OF CARE.
--- NOTE | 2021-01-16 19:30 | NUR ---
Patient is awake, A&Ox3. Nigerien speaking, but understands some Hebrew. Family at bedside. Patient states she is not in need of anything at this time -just that she would like to go to sleep soon. No signs of distress. LFA #20G flushed and patent.
[2021-01-16 20:00] VITALS: BP 101/53
[2021-01-16] MEDS ORDERED: VANCOMYCIN 0.75 GM in IV D5W 250 ML IV SCH (20:00)
[2021-01-16] MEDS: MIRTAZAPINE 15 MG TABLET PO SCH (21:25)
[2021-01-16] MEDS: ATORVASTATIN 10 MG TABLET PO SCH (21:26)
[2021-01-16] MEDS: CEFTRIAXONE 1 G in IV D5W 50 ML IV SCH (21:29)
--- NOTE | 2021-01-17 06:15 | NUR ---
MS RN CLOSING NOTES Patient slept well though easy to wake. A&Ox3. VSS. Denies pain. Tolerating IV ABX well, no ase. Kept safe, clean and dry. No overnight events. Patient repositioned q2h, DVT pumps kept on. IV flushed and intact.
[2021-01-17 07:08] LABS: CALCIUM, SERUM 8.4 mg/dL (8.5-10.1); CARBON DIOXIDE 21 mmol/L (21-32); CHLORIDE 101 mmol/L (98-107); CREATININE 2.9 mg/dL (0.6-1.3); GLUCOSE 116 mg/dL (74-106); POTASSIUM 4.4 mmol/L (3.5-5.1); SODIUM SERUM 133 mmol/L (136-145); UREA NITROGEN, BLOOD 38 mg/dL (7-18)
--- NOTE | 2021-01-17 07:30 | NUR ---
MS/RN OPENING NOTES RECEIVED PATIENT ON BED SLEEPING EASILY AWAKEN BY NAME AND LIGHT TOUCH. ALERT AND ORIENTED X3. PATIENT IN ROOM AIR SATURATING WELL. PATIENT IN NO APPARENT RESPIRATORY DISTRESS NOTED. NO COMPLAINED OF PAIN NOTED AT THIS TIME. WILL CONTINUE TO MONITOR.
[2021-01-17 08:00] VITALS: BP 91/50
[2021-01-17 08:06] LABS: BILIRUBIN,URINE NEGATIVE (NEGATIVE); COLOR,URINE YELLOW (YELLOW); LEUKOCYTE ESTERASE ,URINE NEGATIVE (NEGATIVE); NITRITE, URINE NEGATIVE (NEGATIVE); PROTEIN,URINE NEGATIVE (NEGATIVE); UGLUCOSE NEGATIVE (NEGATIVE); UROBILINOGEN,URINE 0.2 EU/dL (0.2)
[2021-01-17] MEDS: MULTIVITAMIN/LUTEIN/MINERALS 1 TAB PO SCH (08:43)
[2021-01-17] MEDS: CARVEDILOL 3.125 MG TABLET PO SCH ×2 (08:44→21:37)
[2021-01-17] MEDS: ALLOPURINOL 100 MG TABLET PO SCH (08:44)
[2021-01-17] MEDS: PANTOPRAZOLE 40 MG TABLET.DR PO SCH (08:45)
[2021-01-17] MEDS: CLOPIDOGREL BISULFATE 75 MG TABLET PO SCH (08:45)
[2021-01-17] MEDS ORDERED: FUROSEMIDE 20 MG TABLET PO SCH (09:00)
[2021-01-17 09:13] LABS: CREATININE, URINE 117.9 MG/DL (30.0-125.0); EOSINOPHIL,URINE None Seen; URINE TOTAL PROTEIN 21.5 mg/dL (0-11.9)
[2021-01-17] MEDS: MORPHINE SULFATE INJ 2 MG/ML DISP.SYRIN IV PRN ×2 (10:48→23:22)
[2021-01-17] MEDS: IV NS 0.9% 1,000 ML IV PRN (12:17)
[2021-01-17] MEDS ORDERED: SACUBITRIL PO SCH (14:00)
[2021-01-17] MEDS ORDERED: VALSARTAN PO SCH (14:00)
[2021-01-17 16:00] VITALS: BP 116/52
--- NOTE | 2021-01-17 19:00 | NUR ---
MS RN OPENING NOTE PT AWAKE IN BED AT THIS TIME. AOX4, ABLE TO MAKE NEEDS KNOWN. NO SOB NOTED. NO C/O PAIN AT THIS TIME, NO S/O ANY ACUTE DISTRESS NOTED. RESPIRATIONS EVEN AND UNLABORED, STABLE ON RA RECEIVING . IV ACCESS LFA G#24. INTACT, PATENT AND FLUSHING WELL. SAFETY PRECAUTIONS IN PLACE AND MAINTAINED AT ALL TIMES. BED IN LOWEST LOCKED POSITION, HOB ELEVATED, SIDE RAILS UP X2, CALL LIGHT AND TABLE WITHIN REACH. FAMILY AT BEDSIDE. WILL CONTINUE TO MONITOR.
--- NOTE | 2021-01-17 19:04 | NUR ---
MS/RN CLOSING NOTES PATIENT IS ON BED ALERT AND ORIENTED X3. PATIENT IN ROOM AIR SAO2 96% SATURATING WELL. PATIENT IN NO APPARENT RESPIRATORY DISTRESS NOTED. NO COMPLAINED OF PAIN NOTED AT THIS TIME. SEEN AND EXAMINED BY MD WITH ORDERS MADE AND CARRIED OUT. ALL DUE MEDICATIONS WAS GIVEN. IV ACCESS AT LEFT FOREARM # 20 G WITH IV FLUID OF NS1L AT 100ML/HR ON AND INFUSING WELL. SAFETY PRECAUTIONS WAS IN PLACED. BED IN LOWEST POSITION AND LOCKED. SIDE RAILS UP X2. ENTRESTO WAS WITH HELD PER DOCTOR MAXIMUS BECAUSE OF CREATINE LEVEL FAMILY WAS AWARE. WILL ENDORSED TO CONTACT ACID PLANT OPERATOR HELPER FOR BRIELLE.
[2021-01-17 20:01] LABS: BILIRUBIN,URINE NEGATIVE (NEGATIVE); COLOR,URINE YELLOW (YELLOW); LEUKOCYTE ESTERASE ,URINE NEGATIVE (NEGATIVE); NITRITE, URINE NEGATIVE (NEGATIVE); PH,URINE 5.5 (5.0-8.0); PROTEIN,URINE NEGATIVE (NEGATIVE); UGLUCOSE NEGATIVE (NEGATIVE); UROBILINOGEN,URINE 0.2 EU/dL (0.2)
[2021-01-17 20:16] VITALS: BP 117/50
[2021-01-17 20:20] LABS: BACTERIA,URINE 1+ /HPF (None Seen); SQUAMOUS EPITHELIAL CELL,UR 0-2 /HPF (None Seen)
[2021-01-17 20:23] LABS: CREATININE, URINE 59.5 MG/DL (30.0-125.0); URINE TOTAL PROTEIN 27.9 mg/dL (0-11.9)
[2021-01-17 21:12] LABS: EOSINOPHIL,URINE None Seen
[2021-01-17] MEDS: ATORVASTATIN 10 MG TABLET PO SCH (21:35)
[2021-01-17] MEDS: MIRTAZAPINE 15 MG TABLET PO SCH (21:38)
--- NOTE | 2021-01-18 06:00 | NUR ---
MS RN CLOSING NOTE PT IS IN BED SLEEPING, EASILY AROUSED. A/OX4. PT IS STABLE ON RA, NO SOB NOTED, NO RESPIRATORY DISTRESS. PT USES DIAPER AND BED PORTER. IV ACCESS IS INTACT, PATENT AND FLUSHING WELL. ALL NEEDS, MEDICATIONS AND PAIN TREATMENT ADMINISTERED ANTICIPATED PER ORDER. REPOSITIONED Q2H AND PRN. SAFETY, SEIZURE AND ASPIRATION PRECAUTIONS MAINTAINED AT ALL TIMES. BED IN LOWEST LOCKED POSITION, HOB ELEVATED, SIDE RAILS UPCX2. CLL LIGHT AND TABLE WITHIN REACH. WILL ENDORSE TO ONCOMING NURSE FOR BRIELLE.
[2021-01-18] MEDS: IV NS 0.9% 1,000 ML IV PRN (06:20)
[2021-01-18 06:39] LABS: BASOPHILS % (AUTO) 0.2 % (0.0-2.0); EOSINOPHILS % (AUTO) 0.4 % (0.0-6.0); HEMATOCRIT 28 % (33-45); HEMOGLOBIN 9.3 g/dL (11.5-14.8); LYMPHOCYTES # (AUTO) 1.5 K/uL (0.8-4.8); LYMPHOCYTES % (AUTO) 16.4 % (20.0-44.0); MEAN CORPUSCULAR HGB CONC 34 g/dl (31.0-36.0); MEAN CORPUSCULAR VOLUME 95 fL (82-100); MONOCYTES % (AUTO) 11.1 % (2.0-12.0); NEUTROPHILS # (AUTO) 6.5 K/uL (1.8-8.9); NEUTROPHILS % (AUTO) 71.9 % (43.0-81.0); PLATELET COUNT (AUTO) 182 K/uL (150-450); RED BLOOD CELL COUNT(AUTO) 2.91 MIL/uL (4.0-5.2); WHITE BLOOD COUNT (AUTO) 9.1 K/uL (4.3-11.0)
[2021-01-18 07:30] LABS: CALCIUM, SERUM 8.1 mg/dL (8.5-10.1); CARBON DIOXIDE 21 mmol/L (21-32); CHLORIDE 106 mmol/L (98-107); GLUCOSE 119 mg/dL (74-106); MAGNESIUM 2.3 mg/dL (1.8-2.4); PHOSPHORUS 4.2 mg/dL (2.5-4.9); POTASSIUM 4.5 mmol/L (3.5-5.1); SODIUM SERUM 137 mmol/L (136-145); UREA NITROGEN, BLOOD 34 mg/dL (7-18)
[2021-01-18 08:15] VITALS: BP 87/55
[2021-01-18] MEDS: MULTIVITAMIN/LUTEIN/MINERALS 1 TAB PO SCH (08:31)
[2021-01-18] MEDS: CLOPIDOGREL BISULFATE 75 MG TABLET PO SCH (08:31)
[2021-01-18] MEDS: ALLOPURINOL 100 MG TABLET PO SCH (08:31)
[2021-01-18] MEDS: PANTOPRAZOLE 40 MG TABLET.DR PO SCH (08:32)
[2021-01-18] MEDS: CARVEDILOL 3.125 MG TABLET PO SCH ×2 (08:42→21:00)
[2021-01-18 15:56] VITALS: BP 95/40
[2021-01-18] MEDS: CEFTRIAXONE 1 G in IV D5W 50 ML IV SCH (16:01)
[2021-01-18 20:00] VITALS: BP 100/57
--- NOTE | 2021-01-18 20:24 | NUR ---
MS RN NOTES PT IS IN BED SLEEPING, EASILY AROUSED. A/OX4. PT IS STABLE ON RA, NO SOB NOTED, NO RESPIRATORY DISTRESS. PT USES DIAPER AND BED PORTER. IV ACCESS IS INTACT, PATENT AND FLUSHING WELL. REPOSITIONED Q2H AND PRN. SAFETY, SEIZURE AND ASPIRATION PRECAUTIONS MAINTAINED AT ALL TIMES. BED IN LOWEST LOCKED POSITION, HOB ELEVATED, SIDE RAILS UPCX2. CALL LIGHT AND TABLE WITHIN REACH. WILL CONTINUE TO MONITOR.
[2021-01-18] MEDS: ATORVASTATIN 10 MG TABLET PO SCH (21:00)
[2021-01-18] MEDS: MIRTAZAPINE 15 MG TABLET PO SCH (21:00)
[2021-01-18] MEDS: HYDROCODONE/APAP 5/325MG TABLET PO PRN (23:06)
--- NOTE | 2021-01-18 23:06 | NUR ---
MS RN NOTES PT REPORTED PAIN 8/10 ON A NUMERIC PAIN SCALE OF HER RIGHT KNEE PAIN MEDICATION PROVIDED NORCO 5-325MG P.O MEDICATION GIVEN AND TOLERATED WELL. WILL CONTINUE TO MONITOR FOR EFFECTIVENESS OF MEDICATION. ALL PT NEEDS MET AT THIS TIME. WILL CONTINUE TO MONITOR.
--- NOTE | 2021-01-18 23:45 | NUR ---
MS RN NOTES PT PAIN REASSESSMENT DONE PT PAIN LEVEL 2/10 ON A NUMERIC PAIN SCALE. MAIN MANAGEMENT EFFECTIVE PT IN AND OUT OF SLEEP INTERMITTENTLY. WILL CONTINUE TO MONITOR.
[2021-01-19] MEDS: MORPHINE SULFATE INJ 2 MG/ML DISP.SYRIN IV PRN (02:46)
--- NOTE | 2021-01-19 02:46 | NUR ---
MS RN NOTE - PAIN PATIENT C/O 03/12 ABD PAIN. ADMINISTERED MORPHINE ORDERED. WILL CONTINUE TO REASSESS FOR PAIN IN 30 MINUTES.
[2021-01-19] MEDS: IV NS 0.9% 1,000 ML IV PRN ×2 (05:46→21:23)
[2021-01-19 06:22] LABS: BASOPHILS % (AUTO) 0.5 % (0.0-2.0); HEMATOCRIT 29 % (33-45); HEMOGLOBIN 9.8 g/dL (11.5-14.8); LYMPHOCYTES # (AUTO) 2.1 K/uL (0.8-4.8); LYMPHOCYTES % (AUTO) 27.8 % (20.0-44.0); MEAN CORPUSCULAR HGB CONC 34 g/dl (31.0-36.0); MEAN CORPUSCULAR VOLUME 95 fL (82-100); MONOCYTES # (AUTO) 0.8 K/uL (0.1-1.30); MONOCYTES % (AUTO) 10.2 % (2.0-12.0); NEUTROPHILS # (AUTO) 4.4 K/uL (1.8-8.9); NEUTROPHILS % (AUTO) 58.5 % (43.0-81.0); PLATELET COUNT (AUTO) 228 K/uL (150-450); RED BLOOD CELL COUNT(AUTO) 3.08 MIL/uL (4.0-5.2); WHITE BLOOD COUNT (AUTO) 7.5 K/uL (4.3-11.0)
[2021-01-19 06:33] LABS: CALCIUM, SERUM 8.3 mg/dL (8.5-10.1); CARBON DIOXIDE 26 mmol/L (21-32); CHLORIDE 110 mmol/L (98-107); CREATININE 1.6 mg/dL (0.6-1.3); GLUCOSE 94 mg/dL (74-106); MAGNESIUM 2.2 mg/dL (1.8-2.4); PHOSPHORUS 3.4 mg/dL (2.5-4.9); POTASSIUM 5.3 mmol/L (3.5-5.1); SODIUM SERUM 143 mmol/L (136-145); UREA NITROGEN, BLOOD 35 mg/dL (7-18)
--- NOTE | 2021-01-19 06:34 | NUR ---
MS RN CLOSING NOTE A/OX4; ABLE TO MAKE NEEDS KNOWN. TOLERATING ROOM AIR WELL WITH NO SOB. R WRIST #20G NS @ 100ML/HR; PATENT AND INTACT. COLLECTED URINE SPECIMEN AND GAVE IT TO PARUL STOP ATTACHER. SAFETY MEASURES IN PLACE: BED IN LOWEST LOCKED POSITION, SIDE RAILS UPX2, CALL LIGHT WITHIN REACH, BED ALARMS ON. NO ACUTE DISTRESS NOTED. WILL ENDORSE PLAN OF CARE TO ONCOMING MORNING RN.
--- NOTE | 2021-01-19 07:49 | NUR ---
MS/RN OPENING NOTES RECEIVED PATIENT IN BED, A/OX4; ABLE TO MAKE NEEDS KNOWN. TOLERATING ROOM AIR WELL WITH NO SOB. NO DISCOMFORTS NOTED AT THIS TIME. IV ACCESS ON RIGHT WRIST #20G WITH A RUNNING NS @ 100ML/HR; PATENT AND INTACT. SAFETY PRECAUTIONS IN PLACED: BED LOCKED IN LOWEST POSITION, SIDE RAILS UPX2, CALL LIGHT WITHIN REACH, BED ALARMS ON. WILL CONTINUE TO MONITOR PATIENT.
[2021-01-19 08:00] VITALS: BP 115/74
[2021-01-19] MEDS: PANTOPRAZOLE 40 MG TABLET.DR PO SCH (08:08)
[2021-01-19] MEDS: ALLOPURINOL 100 MG TABLET PO SCH (09:15)
[2021-01-19] MEDS: MULTIVITAMIN/LUTEIN/MINERALS 1 TAB PO SCH (09:15)
[2021-01-19] MEDS: CLOPIDOGREL BISULFATE 75 MG TABLET PO SCH (09:15)
[2021-01-19] MEDS: CARVEDILOL 3.125 MG TABLET PO SCH ×2 (09:15→21:00)
[2021-01-19] MEDS: CEFTRIAXONE 1 G in IV D5W 50 ML IV SCH (15:50)
[2021-01-19 16:05] VITALS: BP 104/50
--- NOTE | 2021-01-19 19:39 | NUR ---
MS/RN CLOSING NOTES PATIENT IN BED, A/OX4; ABLE TO MAKE NEEDS KNOWN. TOLERATING ROOM AIR WELL WITH NO SOB. NO DISCOMFORTS NOTED AT THIS TIME. IV ACCESS ON RIGHT WRIST #20G WITH A RUNNING NS @ 100ML/HR; PATENT AND INTACT. SAFETY PRECAUTIONS IN PLACED: BED LOCKED IN LOWEST POSITION, SIDE RAILS UPX2, CALL LIGHT WITHIN REACH, BED ALARMS ON. WILL ENDORSE TO THE NEXT SHIFT FOR CONTINUITY OF CARE.
--- NOTE | 2021-01-19 19:47 | NUR ---
MS RN OPENING NOTE A/OX4; ABLE TO MAKE NEEDS KNOWN. TOLERATING ROOM AIR WELL WITH NO SOB. R WRIST #20G NS @ 100ML/HR; PATENT AND INTACT. FAMILY AT BEDSIDE. SAFETY MEASURES IN PLACE: BED IN LOWEST LOCKED POSITION, SIDE RAILS UPX2, CALL LIGHT WITHIN REACH, BED ALARMS ON. NO ACUTE DISTRESS NOTED. WILL CONT PLAN OF CARE.
[2021-01-19 20:00] VITALS: BP 101/57
--- NOTE | 2021-01-19 21:12 | NUR ---
MS RN NOTE - MOM PATIENT C/O CONSTIPATION, ADMINISTERED MOM ORDERED. WILL CONTINUE TO ASSESS FOR BM THROUGHOUT THE SHIFT.
[2021-01-19] MEDS: MIRTAZAPINE 15 MG TABLET PO SCH (21:14)
[2021-01-19] MEDS: ATORVASTATIN 10 MG TABLET PO SCH (21:14)
[2021-01-19] MEDS ORDERED: MIRTAZAPINE 15 MG TABLET PO SCH (23:30)
[2021-01-20] MEDS ORDERED: MIRTAZAPINE 15 MG TABLET PO SCH
[2021-01-20] MEDS: HYDROCODONE/APAP 5/325MG TABLET PO PRN (05:00)
--- NOTE | 2021-01-20 05:00 | NUR ---
MS SHETTY NOTE - PAIN PT C/O 76/10 ABD PAIN. ADMINISTERED NORCO ORDERED. WILL CONTINUE TO REASSESS FOR PAIN IN 1 HOUR. Addendum: 01/20/21 at 0532 by HERIBERTO GALICIA RN CORRECTION 12/10 PAIN
--- NOTE | 2021-01-20 06:52 | NUR ---
MS RN CLOSING NOTE A/OX4; ABLE TO MAKE NEEDS KNOWN. TOLERATING ROOM AIR WELL WITH NO SOB. R WRIST #20G NS @ 100ML/HR; PATENT AND INTACT. COLLECTED URINE SPECIMEN AND GAVE IT TO PARUL GENERAL MEDICAL PRACTITIONER. SAFETY MEASURES IN PLACE: BED IN LOWEST LOCKED POSITION, SIDE RAILS UPX2, CALL LIGHT WITHIN REACH, BED ALARMS ON. NO ACUTE DISTRESS NOTED. WILL ENDORSE PLAN OF CARE TO ONCOMING MORNING RN.
--- NOTE | 2021-01-20 06:53 | NUR ---
MS RN CLOSING NOTE A/OX4; ABLE TO MAKE NEEDS KNOWN. TOLERATING ROOM AIR WELL WITH NO SOB. R WRIST #20G NS @ 100ML/HR; PATENT AND INTACT. SAFETY MEASURES IN PLACE: BED IN LOWEST LOCKED POSITION, SIDE RAILS UPX2, CALL LIGHT WITHIN REACH, BED ALARMS ON. NO ACUTE DISTRESS NOTED. WILL ENDORSE PLAN OF CARE TO ONCOMING MORNING RN.
[2021-01-20 07:27] LABS: CALCIUM, SERUM 7.8 mg/dL (8.5-10.1); CREATININE 1.3 mg/dL (0.6-1.3); POTASSIUM 4.4 mmol/L (3.5-5.1)
[2021-01-20 08:00] VITALS: BP 135/78
[2021-01-20] MEDS: PANTOPRAZOLE 40 MG TABLET.DR PO SCH (08:28)
[2021-01-20 09:13] VITALS: BP 135/78
[2021-01-20] MEDS: ALLOPURINOL 100 MG TABLET PO SCH (09:13)
[2021-01-20] MEDS: CARVEDILOL 3.125 MG TABLET PO SCH (09:13)
[2021-01-20] MEDS: CLOPIDOGREL BISULFATE 75 MG TABLET PO SCH (09:13)
[2021-01-20] MEDS: MULTIVITAMIN/LUTEIN/MINERALS 1 TAB PO SCH (09:13)
[2021-01-20] MEDS ORDERED: CEPH500C2 PO (09:39)
[2021-01-20] MEDS: CEFTRIAXONE 1 G in IV D5W 50 ML IV SCH (15:23)
--- NOTE | 2021-01-20 17:36 | NUR ---
MS/SYSTEMS SUPPORT ENGINEER NOTES PATIENT IS MEDICALLY STABLE AND DR. THRASHER ORDERED DISCHARGE HOME WITH HOME HEALTH FOR THE PATIENT. PATIENT IS ALERT AND ORIENTED X3, ABLE TO MAKE NEEDS KNOWN. AMBULATORY WITH A WALKER. STABLE ON ROOM AIR. DISCHARGE INSTRUCTIONS GIVEN TO THE PATIENT AND THE DAUGHTER PAMELLA. BOTH WERE ABLE TO VERBALIZED UNDERSTANDING. ALL BELONGINGS ACCOUNTED FOR. IV ACCESS TAKEN OUT. PATIENT WAS ACCOMPANIED BY SON DANA AND DAUGHTER PAMELLA GOING HOME VIA NON-EMERGENCY TRANSPORTATION.
== END 2021-01-20 17:34 | disposition home health service (06) | DRG 351 ==
LOC: ER 13:02 → MED 16:56
PROVIDERS: ADMIT Student in an Organized Health Care Education/Training Program; ATTEND Internal Medicine
PROC: 0S9C3ZX Drainage of Right Knee Joint, Percutaneous Approach, Diagnostic (ICD-10-PCS; principal; 2021-01-15)
DX: M17.11 Unilateral primary osteoarthritis, right knee (principal); N17.0 Acute kidney failure with tubular necrosis; I13.0 Hypertensive heart and chronic kidney disease with heart failure and stage 1 through stage 4 chronic kidney disease, or unspecified chronic kidney disease; I95.9 Hypotension, unspecified; I50.32 Chronic diastolic (congestive) heart failure; D63.8 Anemia in other chronic diseases classified elsewhere; N18.9 Chronic kidney disease, unspecified; E86.0 Dehydration; N39.0 Urinary tract infection, site not specified; F32.9 Major depressive disorder, single episode, unspecified; Z79.02 Long term (current) use of antithrombotics/antiplatelets; Z20.822 Contact with and (suspected) exposure to COVID-19
CPT/HCPCS: 36415; 73564-TC; 73610-TC; 76770-TC; 80048-TC; 80061-TC; 80202-TC; 81001; 82570-TC; 83735-TC; 84100-TC; 84155-TC; 84300-TC; 84443-TC; 85025-TC; 85652-TC; 86140-TC; 87040-TC; 87070-TC; 87081-TC; 87086-TC; 89051-TC; 89060-TC; 93971-TC; 97112-TC; 97116-TC; 97530-TC; C9803; G0378; J0696; J2270; J2405; J3370; J3475; J3490; J7030; J7040; J7060

== ENCOUNTER 2021-03-14 11:01 | Emergency (ER) | payer OTHER ==
[~2021-03-14] VITALS: Ht 152.4 cm; Wt 68.0 kg
[~2021-03-14 11:01] MED LIST changes: -ACET-2605 PO; +ALEN70TA80 PO; -CALC-1180 PO; -CEPH-570 PO; +CEPH500C2 PO; -CETI-90 PO; -DICL100G16 TP; -ESCI20TA PO; -FERR325T23 PO; -GABA-532 PO; +MIRT-121 PO; +OMEP20CA15 PO; +PANT20TA17 PO; -POTA10CA43 PO; +RETINAVITES PO; -SACU1TAB PO; +SACU1TAB7 PO; +[UNRECOGNIZED DRUG - OTHER] PO
[2021-03-14 11:51] LABS: BASOPHILS % (AUTO) 0.6 % (0.0-2.0); EOSINOPHILS % (AUTO) 0.7 % (0.0-6.0); HEMATOCRIT 38 % (33-45); HEMOGLOBIN 12.6 g/dL (11.5-14.8); LYMPHOCYTES # (AUTO) 1.6 K/uL (0.8-4.8); LYMPHOCYTES % (AUTO) 26.6 % (20.0-44.0); MEAN CORPUSCULAR HGB CONC 33 g/dl (31.0-36.0); MEAN CORPUSCULAR VOLUME 94 fL (82-100); MONOCYTES # (AUTO) 0.4 K/uL (0.1-1.30); MONOCYTES % (AUTO) 7.5 % (2.0-12.0); NEUTROPHILS # (AUTO) 3.8 K/uL (1.8-8.9); NEUTROPHILS % (AUTO) 64.6 % (43.0-81.0); PLATELET COUNT (AUTO) 204 K/uL (150-450); RED BLOOD CELL COUNT(AUTO) 4.04 MIL/uL (4.0-5.2); WHITE BLOOD COUNT (AUTO) 5.9 K/uL (4.3-11.0)
[2021-03-14 12:01] LABS: CALCIUM, SERUM 9.2 mg/dL (8.5-10.1); CARBON DIOXIDE 25 mmol/L (21-32); CHLORIDE 107 mmol/L (98-107); CREATININE 1.3 mg/dL (0.6-1.3); GLUCOSE 105 mg/dL (74-106); POTASSIUM 4.3 mmol/L (3.5-5.1); SODIUM SERUM 144 mmol/L (136-145); UREA NITROGEN, BLOOD 23 mg/dL (7-18)
--- NOTE | 2021-03-14 12:07 | NUR ---
pt rec'd to er c/o dizzness for 2 days ekg done iv started 20g rt wrist labs drawn sent to lab vss son at bedside AWAITING EVALUATION BY ER PROVIDER.
[2021-03-14 12:14] LABS: ALANINE AMINOTRANSFERASE 8 U/L (12-78); ALBUMIN 3.5 g/dL (3.4-5.0); ALKALINE PHOSPHATASE 63 U/L (46-116); ASPARTATE AMINOTRANSFERASE 18 U/L (15-37); BILIRUBIN,DIRECT 0.1 mg/dL (0.0-0.2); BILIRUBIN,TOTAL 0.6 mg/dL (0.2-1.0); LIPASE 282 U/L (73-393); TOTAL PROTEIN, SERUM 7.8 g/dL (6.4-8.2)
--- NOTE | 2021-03-14 12:26 | NUR ---
pt sent to ct
[2021-03-14] MEDS ORDERED: IOHEXOL-300 100 ML VIAL IV ONE (12:30)
[2021-03-14] MEDS ORDERED: IV NS 0.9% 250 ML IV ONE (12:30)
--- NOTE | 2021-03-14 12:51 | NUR ---
pt back from ct monitors applied css
[2021-03-14 14:08] LABS: BILIRUBIN,URINE Negative (NEGATIVE); COLOR,URINE YELLOW (YELLOW); LEUKOCYTE ESTERASE ,URINE Negative (NEGATIVE); NITRITE, URINE Negative (NEGATIVE); PH,URINE 5.5 (5.0-8.0); PROTEIN,URINE Negative (NEGATIVE); UGLUCOSE Negative (NEGATIVE); UROBILINOGEN,URINE 0.2 EU/dL (0.2)
[2021-03-14 14:10] LABS: BACTERIA,URINE Rare /HPF (None Seen); RBC,URINE NONE SEEN /HPF (0-2); SQUAMOUS EPITHELIAL CELL,UR Few /HPF (None Seen); WBC,URINE NONE SEEN /HPF (0-3)
[2021-03-14 14:53] VITALS: BP 129/59
== END 2021-03-14 14:54 | disposition home or self-care (01) ==
LOC: ER 11:08
DX: R42 Dizziness and giddiness (principal); I10 Essential (primary) hypertension; Z98.890 Other specified postprocedural states; Z79.899 Other long term (current) drug therapy
CPT/HCPCS: 36415; 71045; 74177; 80048; 80076; 81001; 83690; 83880; 84484; 85025; 85730; 93005; 99285; J7050; Q9967

== ENCOUNTER 2021-03-30 09:36 | Inpatient (IN) | payer OTHER ==
[~2021-03-30] VITALS: Ht 165.1 cm; Wt 63.5 kg
--- NOTE | 2021-03-30 10:04 | NUR ---
bibra90, from home, c/o sob 93% on room air. Connected to the monitor and pulse ox. kept comfortable, will continue to monitor accordingly.
[2021-03-30] MEDS ORDERED: FOLI0.4T6 PO (10:09)
[2021-03-30] MEDS ORDERED: DULO20CA PO (10:09)
[2021-03-30] MEDS ORDERED: CYAN-51 PO (10:09)
[2021-03-30] MEDS ORDERED: FLUT1BLS12 IH (10:09)
[2021-03-30] MEDS ORDERED: NITR0.4T48 SL (10:09)
[2021-03-30 10:32] LABS: BASOPHILS % (AUTO) 0.2 % (0.0-2.0); EOSINOPHILS % (AUTO) 0.2 % (0.0-6.0); HEMATOCRIT 36 % (33-45); HEMOGLOBIN 11.9 g/dL (11.5-14.8); LYMPHOCYTES # (AUTO) 1.4 K/uL (0.8-4.8); LYMPHOCYTES % (AUTO) 13.5 % (20.0-44.0); MEAN CORPUSCULAR HGB CONC 33 g/dl (31.0-36.0); MEAN CORPUSCULAR VOLUME 95 fL (82-100); MONOCYTES # (AUTO) 0.7 K/uL (0.1-1.30); MONOCYTES % (AUTO) 6.9 % (2.0-12.0); NEUTROPHILS # (AUTO) 8.2 K/uL (1.8-8.9); NEUTROPHILS % (AUTO) 79.2 % (43.0-81.0); PLATELET COUNT (AUTO) 165 K/uL (150-450); RED BLOOD CELL COUNT(AUTO) 3.81 MIL/uL (4.0-5.2); WHITE BLOOD COUNT (AUTO) 10.4 K/uL (4.3-11.0)
[2021-03-30 10:45] LABS: CALCIUM, SERUM 8.8 mg/dL (8.5-10.1); CARBON DIOXIDE 26 mmol/L (21-32); CHLORIDE 107 mmol/L (98-107); CREATININE 1.1 mg/dL (0.6-1.3); GLUCOSE 117 mg/dL (74-106); SODIUM SERUM 141 mmol/L (136-145); UREA NITROGEN, BLOOD 20 mg/dL (7-18)
[2021-03-30 10:51] LABS: ALANINE AMINOTRANSFERASE 11 U/L (12-78); ALBUMIN 3.2 g/dL (3.4-5.0); ALKALINE PHOSPHATASE 60 U/L (46-116); ASPARTATE AMINOTRANSFERASE 13 U/L (15-37); BILIRUBIN,DIRECT 0.2 mg/dL (0.0-0.2); BILIRUBIN,TOTAL 0.8 mg/dL (0.2-1.0); TOTAL PROTEIN, SERUM 7.2 g/dL (6.4-8.2)
--- NOTE | 2021-03-30 11:12 | NUR ---
MOVE SHEET SUBMITTED AND CALLED FOR TELE BED.
[2021-03-30] MEDS ORDERED: IOHEXOL-350 100 ML VIAL IV ONE (11:27)
[2021-03-30] MEDS ORDERED: IV NS 0.9% 250 ML IV ONE (11:28)
--- NOTE | 2021-03-30 11:58 | NUR ---
covid swab collected and sent to lab.
--- NOTE | 2021-03-30 12:19 | NUR ---
ADMITTING CALLED, MELODIE GOT AUTH FOR PT.
--- NOTE | 2021-03-30 12:26 | NUR ---
CALLED HOUSE SUP, ASKED FOR TELE BED.
[2021-03-30] MEDS ORDERED: ENOXAPARIN SODIUM 60 MG/0.6 ML DISP.SYRIN SQ ONE ×2 (12:27→12:30)
[2021-03-30] MEDS ORDERED: MORPHINE SULFATE INJ 2 MG/ML DISP.SYRIN ONE (12:27)
[2021-03-30] MEDS ORDERED: MORPHINE SULFATE INJ 2 MG/ML DISP.SYRIN IV ONE (12:30)
[2021-03-30] MEDS ORDERED: hydrALAZINE HCL IV 20 MG VIAL IV PRN (12:30)
[2021-03-30] MEDS ORDERED: ACETAMINOPHEN 325 MG TABLET PO PRN (12:30)
[2021-03-30] MEDS ORDERED: Z GUARD REMEDY 2 OZ OINT TP PRN (12:30)
[2021-03-30] MEDS ORDERED: LABETALOL 20 MG/4 ML VIAL IV PRN (12:30)
[2021-03-30 12:48] LABS: BILIRUBIN,URINE Negative (NEGATIVE); COLOR,URINE YELLOW (YELLOW); LEUKOCYTE ESTERASE ,URINE Trace (NEGATIVE); NITRITE, URINE Negative (NEGATIVE); PH,URINE 5.5 (5.0-8.0); PROTEIN,URINE Negative (NEGATIVE); UGLUCOSE Negative (NEGATIVE); UROBILINOGEN,URINE 0.2 EU/dL (0.2)
--- NOTE | 2021-03-30 12:54 | NUR ---
GOT BED 311-1
[2021-03-30 13:00] LABS: BACTERIA,URINE Moderate /HPF (None Seen); SQUAMOUS EPITHELIAL CELL,UR Few /HPF (None Seen)
[2021-03-30] MEDS ORDERED: NITROGLYCERIN 0.4 MG/TAB BOTTLE SL PRN (13:00)
[2021-03-30 13:01] LABS: RBC,URINE 0-3 /HPF (0-2)
--- NOTE | 2021-03-30 13:27 | NUR ---
Wheeled patient via gurney accompanied by RN and emt in no distress. Report given at bedside to emy SHETTY for syl.
--- NOTE | 2021-03-30 13:30 | NUR ---
RN NOTE PT MADE COMFORTABLE. V/S CHECKED. LABS AND ORDERS REVIEWED. NO S/S OF DISTRESS. WILL CONTINUE TO MONITOR.
[2021-03-30] MEDS: AMOX/CLAVULANATE 875 MG TABLET PO SCH ×2 (14:39→17:00)
[2021-03-30] MEDS: APIXABAN 5 MG TABLET PO SCH ×2 (14:40→18:19)
[2021-03-30 16:00] VITALS: BP 103/48
[2021-03-30] MEDS: BUDESONIDE RESPULE INH 0.5 MG/2 ML AMPUL.NEB NEB SCH (17:00)
[2021-03-30] MEDS ORDERED: FLUTICASONE/SALMETEROL 1 DISK IH SCH (17:00)
[2021-03-30] MEDS: CARVEDILOL 6.25 MG TABLET PO SCH (18:18)
--- NOTE | 2021-03-30 18:40 | NUR ---
RN NOTES DANA (SON) [phone], PAMELLA (DTR) [phone].
[2021-03-30] MEDS: MORPHINE SULFATE INJ 2 MG/ML DISP.SYRIN IV PRN (19:08)
[2021-03-30 20:00] VITALS: BP 106/59
--- NOTE | 2021-03-30 20:04 | NUR ---
RN NOTE PT IN STABLE CONDITION. LABS AND ORDERS REVIEWED. COMFORTABLE IN BED. REPORT GIVE TO NIGHT NURSE FOR BRIELLE.
--- NOTE | 2021-03-30 20:25 | NUR ---
BLEACH CHLORINATOR OPENING NOTES RECEIVED PT IN BED, AWAKE, FAMILY MEMBER AT BEDSIDE. ON RA AND TOLERATING WELL. NO SOB NOTED. NO S/SX OF RESPIRATORY DISTRESS NOTED. IV ACCESS IN R WRIST #20G. IV IS INTACT, PATENT AND FLUSHING WELL. NO COMPLAINTS OF PAIN AT THIS TIME. SAFETY PRECAUTIONS IN PLACE: BED IN LOWEST, LOCKED POSITION, BRAKES ON, SIDERAILS UPx2. CALL LIGHT AND TABLE WITHIN REACH. WILL CONTINUE TO MONITOR. Addendum: 03/30/21 at 2034 by UMAIR LUCERO RN TELE MONITOR DETECTS SINUS TACHYCARDIA WITH RATE OF 120.
[2021-03-30] MEDS: ATORVASTATIN 10 MG TABLET PO SCH (21:04)
[2021-03-31] VITALS: BP 97/45
[2021-03-31 04:00] VITALS: BP 107/51
--- NOTE | 2021-03-31 06:30 | NUR ---
WINE CONSULTANT CLOSING NOTES PT IN BED, AWAKE. ON 2 L/MIN VIA NASAL CANNULA AND TOLERATING WELL. NO SOB NOTED. NO S/SX OF RESPIRATORY DISTRESS NOTED. IV ACCESS IN R WRIST #20G. IV IS INTACT, PATENT AND FLUSHING WELL. TELE MONITOR DETECTS SINUS TACHYCARDIA AND SINUS RHYTHM WITH RATE FROM 90-120. NO COMPLAINTS OF PAIN THROUGHOUT SHIFT. ALL NEEDS MET. PT KEPT CLEAN AND DRY. SAFETY PRECAUTIONS IN PLACE: BED IN LOWEST, LOCKED POSITION, BRAKES ON, SIDERAILS UPx2. CALL LIGHT AND TABLE WITHIN REACH. WILL ENDORSE TO ONCOMING SHIFT.
[2021-03-31] MEDS: MORPHINE SULFATE INJ 2 MG/ML DISP.SYRIN IV PRN ×2 (07:21→15:27)
--- NOTE | 2021-03-31 07:27 | NUR ---
ADMINISTERED MORPHINE PER MD ORDER FOR PAIN. VS WNL. WILL ENDORSE TO ONCOMING SHIFT TO MONITOR.
--- NOTE | 2021-03-31 07:30 | NUR ---
RN NOTE ON TELEMONITOR CURRENTLY READING SINUS TACHYCARDIA AT 111BPM.
--- NOTE | 2021-03-31 07:30 | NUR ---
[employer] HELPER OPENING NOTES RECEIVED PATIENT ON BED, AWAKE AND A/O X2, SWEDISH SPEAKING. ON O2 AT 2LPM VIA NASAL CANNULA, TOLERATING WELL. NO SOB NOTED. NOT IN DISTRESS. WITH NO COMPLAINTS OF PAIN OR DISCOMFORT AT THIS TIME. WITH IV ACCESS AT RIGHT WRIST G20, SALINE LOCKED, INTACT AND PATENT. SAFETY MEASURES IN PLACED. CALL LIGHT WITHIN REACH. BED ON LOWEST AND LOCKED POSITION, SIDE RAILS UP X2. WILL CONTINUE TO MONITOR.
[2021-03-31 08:00] VITALS: BP 124/72
[2021-03-31] MEDS: BUDESONIDE RESPULE INH 0.5 MG/2 ML AMPUL.NEB NEB SCH ×2 (09:00→17:07)
--- NOTE | 2021-03-31 09:00 | NUR ---
RN NOTES CHECKED PATIENT'S O2 SATURATION WITHOUT O2 VIA NASAL CANNULA. O2 SATURATION WAS 88% AND PATIENT WAS ASKED TO DEEP BREATH AND O2 SATURATION AT 92%.
[2021-03-31] MEDS: DULOXETINE HCL 20 MG CAPSULE.DR PO SCH (10:24)
[2021-03-31] MEDS: CLOPIDOGREL BISULFATE 75 MG TABLET PO SCH (10:27)
[2021-03-31] MEDS: APIXABAN 5 MG TABLET PO SCH ×2 (10:31→16:21)
[2021-03-31] MEDS: CARVEDILOL 6.25 MG TABLET PO SCH ×2 (10:35→16:19)
[2021-03-31] MEDS: AMOX/CLAVULANATE 875 MG TABLET PO SCH ×2 (11:14→16:19)
[2021-03-31] MEDS ORDERED: APIX5TAB PO (11:28)
[2021-03-31] MEDS ORDERED: APIX5TAB4 PO (11:28)
[2021-03-31 12:00] VITALS: BP 118/71
--- NOTE | 2021-03-31 13:00 | NUR ---
RN NOTES TOOK OFF PATIENT'S O2 VIA NASAL CANNULA AND O2 SATURATION AT 88% AND ASKED TO DEEP BREATH AND O2 SATURATION WENT UP TO 92%.
--- NOTE | 2021-03-31 15:27 | NUR ---
RN NOTES WITH COMPLAINTS OF HEADACHE AND ABDOMINAL PAIN AT THE SCALE OF 7/10. PAIN MEDICATION GIVEN. COMFORT MEASURES PROVIDED.
[2021-03-31 16:00] VITALS: BP 137/63
[2021-03-31] MEDS: ALBUTEROL FS 2.5 MG/3 ML VIAL.NEB NEB SCH ×3 (17:08→19:57)
--- NOTE | 2021-03-31 17:08 | NUR ---
RT RT UNAWARE OF SCHEDULED BREATHING TX'S. KARLENE MONTOYA RN NOTIFIED AND AWARE. NO SOB NOTED. WILL INFORM NOC RT OF ROUTINE TX.
--- NOTE | 2021-03-31 17:50 | NUR ---
RN NOTES PATIENT REFUSED TO TAKE ENTRESTO MEDICATION. HER WHO IS [place] SPEAKING WANTS TO TALKS FIRST TO THE DOCTOR ABOUT ENTRESTO MEDICATION.
[2021-03-31] MEDS: ENTRESTO PO SCH ×2 (17:58→18:05)
--- NOTE | 2021-03-31 18:36 | NUR ---
AERIAL PHOTOGRAPH INTERPRETER CLOSING NOTES PATIENT ON BED, AWAKE AND A/O X4, [place] SPEAKING. ON O2 AT 2LPM VIA NASAL CANNULA, TOLERATING WELL. NO SOB NOTED. NOT IN DISTRESS. WITH NO COMPLAINTS OF PAIN OR DISCOMFORT AT THIS TIME. WITH IV ACCESS AT RIGHT WRIST G20, SALINE LOCKED, INTACT AND PATENT. SAFETY MEASURES IN PLACED. CALL LIGHT WITHIN REACH. BED ON LOWEST AND LOCKED POSITION, SIDE RAILS UP X2. WILL ENDORSE TO NEXT SHIFT FOR BRIELLE.
--- NOTE | 2021-03-31 19:15 | NUR ---
CONTINUITY OF CARE Patient is A/O x3. On Oxygen support. Sinus Rhythm in the Tele monitor. No c/o pain or discomfort. Fall precaution maintained.
[2021-03-31 20:00] VITALS: BP 124/66
[2021-03-31] MEDS: ATORVASTATIN 10 MG TABLET PO SCH (21:55)
[2021-04-01] VITALS (8 sets, daily range): BP systolic 93–151; BP diastolic 53–76
[2021-04-01] MEDS: ALBUTEROL FS 2.5 MG/3 ML VIAL.NEB NEB SCH ×4 (01:08→20:07)
[2021-04-01] MEDS: ONDANSETRON HCL/PF 4 MG/2 ML VIAL IVP PRN ×2 (06:17→20:17)
--- NOTE | 2021-04-01 06:25 | NUR ---
END OF SHIFT REPORT Patient A/O x3. Sinus rhythm in the Tele monitor HR 90's. Stable Oxygen on room air, Oxygen sat in high 90's. No c/o chest pain. Feels nauseated this morning, no emesis. Given Zofran, will reassess. On PO abx. Afebrile. Plan for dc planning. Will endorse to oncoming RN.
--- NOTE | 2021-04-01 07:30 | NUR ---
RECEIVED PT. IN AM ALERT AND ORIENTEDX3,VERY PLEASANT AND COOPERATIVE,MED COMPLIANT.
[2021-04-01] MEDS: BUDESONIDE RESPULE INH 0.5 MG/2 ML AMPUL.NEB NEB SCH ×2 (09:12→17:54)
[2021-04-01] MEDS: FUROSEMIDE 20 MG TABLET PO SCH (10:21)
[2021-04-01] MEDS: DULOXETINE HCL 20 MG CAPSULE.DR PO SCH (10:21)
[2021-04-01] MEDS: CLOPIDOGREL BISULFATE 75 MG TABLET PO SCH (10:22)
[2021-04-01] MEDS: CARVEDILOL 6.25 MG TABLET PO SCH ×2 (10:22→17:40)
[2021-04-01] MEDS: AMOX/CLAVULANATE 875 MG TABLET PO SCH (10:23)
[2021-04-01] MEDS: APIXABAN 5 MG TABLET PO SCH ×2 (10:25→17:42)
--- NOTE | 2021-04-01 10:30 | NUR ---
DTR. HERE REQUESTING LAXATIVE FOR PT
[2021-04-01] MEDS: POLYETHYLENE GLYCOL 3350 17 GM POWD.PACK PO SCH (13:55)
[2021-04-01] MEDS: DOCUSATE SODIUM 100 MG CAPSULE PO SCH ×2 (13:55→17:40)
--- NOTE | 2021-04-01 13:55 | NUR ---
STARTED ON COLACE AND MIRALAX AFTER CONTACTING
--- NOTE | 2021-04-01 17:30 | NUR ---
PC SUPPORT SPECIALIST REPORTS LRG. BM.FAMILY HERE ALL DAY.
[2021-04-01] MEDS: CEFEPIME 1 GM in IV D5W 50 ML IV SCH (17:46)
[2021-04-01] MEDS: ENTRESTO PO SCH (17:47)
--- NOTE | 2021-04-01 19:00 | NUR ---
FRANCHISE SALES DIRECTOR OPENING NOTE RECEIVED PT IN BED, RESTING A/O X3, PT STABLE ON 2L OXYGEN VIA NC. NO S/S OF RESPIRATORY DISTRESS. PT IS ON EXTERNAL PEARL RESTORER READING SR @ 86 WITH BBB AND OCCASIONAL PVC. NO C/O PAIN AT THIS TIME. IV ACCESS IN RIGHT WRIST# 20. IV IS INTACT, PATENT, AND FLUSHING WELL. FAMILY AT BEDSIDE. SAFETY MEASURES MAINTAINED AT ALL TIMES. BED IN LOWEST LOCKED POSITION, HOB ELEVATED, SIDE RAILS UP X2. CALL LIGHT AND TABLE WITHIN REACH. WILL CONTINUE WITH PLAN OF CARE.
--- NOTE | 2021-04-01 20:17 | NUR ---
PT C/O NAUSEA, PER PT REQUEST ZOFRAN 4MG/2ML IVP Q 6H PRN ADMINISTERED AT THIS TIME PER ORDER. WILL CONTINUE TO MONITOR.
[2021-04-01] MEDS: ATORVASTATIN 10 MG TABLET PO SCH (22:42)
[2021-04-02] VITALS: BP 99/54
[2021-04-02] MEDS: ALBUTEROL FS 2.5 MG/3 ML VIAL.NEB NEB SCH ×4 (01:13→20:47)
[2021-04-02 04:00] VITALS: BP 98/50
[2021-04-02] MEDS: CEFEPIME 1 GM in IV D5W 50 ML IV SCH ×2 (05:09→16:57)
--- NOTE | 2021-04-02 06:30 | NUR ---
SHINGLE SAWYER CLOSING NOTE PT AWAKE IN BED AT THIS TIME, STABLE ON 2L OXYGEN VIA NC, SR @ 70'S, BBB WITH PVC. PT REMAINED STABLE THROUGHOUT SHIFT. ALL NEEDS, MEDICATIONS, AND CARE ADMINISTERED ANTICIPATED PER ORDER; SAFETY PRECAUTIONS IN PLACE AND MAINTAINED AT ALL TIMES. BED IN LOWEST, LOCKED POSITION, HOB ELEVATED, SIDE RAILS UP X2. CALL LIGHT AN DTABLE WITHIN REACH. WILL ENDORSE TO AM SHIFT NURSE FOR BRIELLE.
[2021-04-02 08:00] VITALS: BP 122/61
[2021-04-02] MEDS: POLYETHYLENE GLYCOL 3350 17 GM POWD.PACK PO SCH (08:47)
[2021-04-02] MEDS: DULOXETINE HCL 20 MG CAPSULE.DR PO SCH (08:48)
[2021-04-02] MEDS: ENTRESTO PO SCH ×2 (08:48→16:42)
[2021-04-02] MEDS: CARVEDILOL 6.25 MG TABLET PO SCH ×2 (08:48→16:42)
[2021-04-02] MEDS: DOCUSATE SODIUM 100 MG CAPSULE PO SCH ×2 (08:48→16:43)
[2021-04-02] MEDS: CLOPIDOGREL BISULFATE 75 MG TABLET PO SCH (08:48)
[2021-04-02] MEDS: APIXABAN 5 MG TABLET PO SCH ×2 (08:53→16:47)
--- NOTE | 2021-04-02 09:00 | NUR ---
tele registered radiographer: md visit seen and examined by dr. brizuela at this time. pt for d'c planning.
[2021-04-02] MEDS: BUDESONIDE RESPULE INH 0.5 MG/2 ML AMPUL.NEB NEB SCH ×2 (09:02→16:55)
--- NOTE | 2021-04-02 10:00 | NUR ---
tele clinical esthetician: notes daughter here and request to talk to the doctor. dr. brizuela notified and made aware of daughter's concern. phone handed to daughter and updated plan of care. pt for d'c planning and pt and daughter aware.
[2021-04-02 16:00] VITALS: BP 121/59
--- NOTE | 2021-04-02 17:00 | NUR ---
tele roof truss builder: notes dinner served, but pt is not hungry at this time.
--- NOTE | 2021-04-02 18:40 | NUR ---
tele batchmaker: notes resting quietly in her room with son at bedside. needs attended. no distress noted. call light within reach. will continue to monitor.
--- NOTE | 2021-04-02 19:15 | NUR ---
tele paper twister: notes report given to rachel (ban) for continuity of care. son at bedside.
--- NOTE | 2021-04-02 20:31 | NUR ---
LEG BREAKER OPENING NOTE PT A/OX4; ABLE TO MAKE NEEDS KNOWN. ON O2 2LPM VIA N/C TOLERATING WELL SATTING AT 95%. EXTERNAL CARDIAC TELE MONITOR READS SR 76 WITH BBB AND PVC. DENIES PAIN OR DISCOMFORT AT THIS TIME. R WRIST #20G S/L; PATENT AND INTACT. CALLED RT FOR BREATHING TX. SAFETY MEASURES IN PLACE: BED IN LOWEST LOCKED POSITION, SIDE RAILS UP X2, CALL LIGHT WITHIN EASY REACH, BED ALARM ON. PT IN STABLE CONDITION, WILL CONT. PLAN OF CARE.
[2021-04-02 20:44] VITALS: BP 92/48
[2021-04-02] MEDS: MORPHINE SULFATE INJ 2 MG/ML DISP.SYRIN IV PRN (22:06)
[2021-04-02] MEDS: ONDANSETRON HCL/PF 4 MG/2 ML VIAL IVP PRN (22:06)
[2021-04-02] MEDS: ATORVASTATIN 10 MG TABLET PO SCH (22:06)
--- NOTE | 2021-04-02 22:06 | NUR ---
HONEY LIQUEFIER NOTE - PAIN/NAUSEA PT C/O 02/09 PAIN DURING RESPIRATIONS AND NAUSEA. ADMINISTERED MORPHINE AND ZOFRAN ORDERED. WILL REASSESS IN 30 MINUTES.
[2021-04-03 00:03] VITALS: BP 103/48
[2021-04-03] MEDS: ALBUTEROL FS 2.5 MG/3 ML VIAL.NEB NEB SCH ×2 (01:55→08:13)
[2021-04-03] MEDS: CEFEPIME 1 GM in IV D5W 50 ML IV SCH (05:06)
--- NOTE | 2021-04-03 06:20 | NUR ---
WATCH AND CLOCK REPAIR CLERK CLOSING NOTE PT A/OX4; ABLE TO MAKE NEEDS KNOWN. ON O2 2LPM VIA N/C TOLERATING WELL SATTING AT 96%. EXTERNAL CARDIAC TELE MONITOR READS SR 80 WITH BBB AND PVC. DENIES PAIN OR DISCOMFORT AT THIS TIME. R WRIST #20G S/L; PATENT AND INTACT. SAFETY MEASURES IN PLACE: BED IN LOWEST LOCKED POSITION, SIDE RAILS UP X2, CALL LIGHT WITHIN EASY REACH, BED ALARM ON. PT IN STABLE CONDITION, WILL ENDORSE PLAN OF CARE TO ONCOMING MORNING RN.
--- NOTE | 2021-04-03 08:00 | NUR ---
TELE/RN OPENING NOTE RECEIVED PT A/OX4; ABLE TO MAKE NEEDS KNOWN. ON O2 2LPM VIA N/C TOLERATING WELL SATTING AT 96%. EXTERNAL CARDIAC TELE MONITOR READS SR 80 WITH BBB AND PVC. DENIES PAIN OR DISCOMFORT AT THIS TIME. R WRIST #20G S/L; PATENT AND INTACT. SAFETY MEASURES IN PLACE: BED IN LOWEST LOCKED POSITION, SIDE RAILS UP X2, CALL LIGHT WITHIN EASY REACH, BED ALARM ON. WILL CONTINUE TO MONITOR PATIENT.
[2021-04-03] MEDS: BUDESONIDE RESPULE INH 0.5 MG/2 ML AMPUL.NEB NEB SCH (08:15)
[2021-04-03] MEDS: FUROSEMIDE 20 MG TABLET PO SCH (08:36)
[2021-04-03] MEDS: DOCUSATE SODIUM 100 MG CAPSULE PO SCH (08:36)
[2021-04-03] MEDS: POLYETHYLENE GLYCOL 3350 17 GM POWD.PACK PO SCH (08:36)
[2021-04-03] MEDS: DULOXETINE HCL 20 MG CAPSULE.DR PO SCH (08:36)
[2021-04-03] MEDS: CLOPIDOGREL BISULFATE 75 MG TABLET PO SCH (08:36)
[2021-04-03] MEDS: ENTRESTO PO SCH (08:37)
[2021-04-03] MEDS: APIXABAN 5 MG TABLET PO SCH (08:42)
[2021-04-03 09:00] VITALS: BP 103/58
[2021-04-03] MEDS: CARVEDILOL 6.25 MG TABLET PO SCH (09:00)
--- NOTE | 2021-04-03 09:01 | NUR ---
MS/RN NOTES DR. SCOTT ORDERED PATIENT TO DC FROM TELE AND TRANSER TO MEDSUR.
--- NOTE | 2021-04-03 09:02 | NUR ---
MS/RN NOTES- WITHHELD CARVEDILOL WITHHELD CARVEDILOL PO DUE TO LOW BP OF 103/58. WILL CONTINUE TO MONITOR.
--- NOTE | 2021-04-03 13:30 | NUR ---
MS/VP CLIENT SERVICES NOTES PATIENT IS ALERT AND ORIENTED X4, ABLE TO MAKE NEEDS KNOWN. ABLE TO TOLERATE WITHOUT OXYGEN. PATIENT IS MEDICALLY STABLE AND DR. OLIVO ORDERED DISCHARGE TO HOME FOR THE PATIENT. ALL BELONGINGS ACCOUNTED FOR. DISCHARGE INSTRUCTIONS GIVEN TO THE PATIENT AND SON DANA. SON AND DAUGHTER ARE BOTH PRESENT. IV ACCESS DISCONTINUED. WHEELED PATIENT IN THE LOBBY AND LEFT VIA PRIVATE CAR DRIVEN BY JAY JAY CORTEZ.
== END 2021-04-03 12:45 | disposition home or self-care (01) | DRG 134 ==
LOC: ER 09:41 → TELE 13:04 → MED 04-03 09:08
PROVIDERS: ADMIT Internal Medicine; ATTEND Internal Medicine
DX: I26.99 Other pulmonary embolism without acute cor pulmonale (principal); I13.0 Hypertensive heart and chronic kidney disease with heart failure and stage 1 through stage 4 chronic kidney disease, or unspecified chronic kidney disease; I50.32 Chronic diastolic (congestive) heart failure; D63.1 Anemia in chronic kidney disease; I25.10 Atherosclerotic heart disease of native coronary artery without angina pectoris; N18.9 Chronic kidney disease, unspecified; Z79.01 Long term (current) use of anticoagulants; Z20.822 Contact with and (suspected) exposure to COVID-19; F32.9 Major depressive disorder, single episode, unspecified
CPT/HCPCS: 36415; 71045-TC; 80048-TC; 80076-TC; 81001; 83605-TC; 84484-TC; 85025-TC; 85730-TC; 87040-TC; 87081-TC; 87086-TC; 87186-TC; 93307-TC; 94799-TC; 97116-TC; 97530-TC; G0378; J0692; J1650; J2270; J2405; J7050; J7060; Q9967

== ENCOUNTER 2021-04-08 19:26 | Emergency (ER) | payer OTHER ==
[~2021-04-08] VITALS: Ht 152.4 cm; Wt 68.0 kg
[~2021-04-08 19:26] MED LIST changes: -ALEN70TA80 PO; -ALLO100T PO; +APIX5TAB PO; +APIX5TAB4 PO; -CEPH500C2 PO; +CYAN-51 PO; +DULO20CA PO; +FLUT1BLS12 IH; +FOLI0.4T6 PO; -MIRT-121 PO; +NITR0.4T48 SL; -OMEP20CA15 PO; -RETINAVITES PO; -[UNRECOGNIZED DRUG - OTHER] PO
--- NOTE | 2021-04-08 21:00 | NUR ---
BIBSON. LOWER ABD DISCOMFORT. NO BM X 4 DAYS. DENIES NVD. PT ALERT AND ORIENTED X3. AMBULATORY WITH NON LABORED BREATHING.
--- NOTE | 2021-04-08 21:10 | NUR ---
BLOOD COLLECTED AND SENT TO LAB
[2021-04-08 21:16] LABS: BASOPHILS % (AUTO) 0.5 % (0.0-2.0); EOSINOPHILS % (AUTO) 2.1 % (0.0-6.0); HEMATOCRIT 37 % (33-45); LYMPHOCYTES # (AUTO) 1.6 K/uL (0.8-4.8); LYMPHOCYTES % (AUTO) 26.7 % (20.0-44.0); MEAN CORPUSCULAR HGB CONC 33 g/dl (31.0-36.0); MEAN CORPUSCULAR VOLUME 95 fL (82-100); MONOCYTES # (AUTO) 0.6 K/uL (0.1-1.30); MONOCYTES % (AUTO) 9.9 % (2.0-12.0); NEUTROPHILS # (AUTO) 3.6 K/uL (1.8-8.9); NEUTROPHILS % (AUTO) 60.8 % (43.0-81.0); PLATELET COUNT (AUTO) 311 K/uL (150-450); RED BLOOD CELL COUNT(AUTO) 3.86 MIL/uL (4.0-5.2)
--- NOTE | 2021-04-08 21:36 | NUR ---
urine collected and sent to lab
[2021-04-08 21:44] LABS: ALANINE AMINOTRANSFERASE 20 U/L (12-78); ALBUMIN 3.4 g/dL (3.4-5.0); ALKALINE PHOSPHATASE 66 U/L (46-116); ASPARTATE AMINOTRANSFERASE 24 U/L (15-37); BILIRUBIN,DIRECT 0.1 mg/dL (0.0-0.2); BILIRUBIN,TOTAL 0.4 mg/dL (0.2-1.0); CALCIUM, SERUM 9.3 mg/dL (8.5-10.1); CARBON DIOXIDE 23 mmol/L (21-32); CHLORIDE 104 mmol/L (98-107); CREATININE 1.8 mg/dL (0.6-1.3); GLUCOSE 102 mg/dL (74-106); LIPASE 258 U/L (73-393); POTASSIUM 4.3 mmol/L (3.5-5.1); SODIUM SERUM 139 mmol/L (136-145); TOTAL PROTEIN, SERUM 7.5 g/dL (6.4-8.2); UREA NITROGEN, BLOOD 15 mg/dL (7-18)
[2021-04-08 22:10] LABS: BILIRUBIN,URINE Negative (NEGATIVE); COLOR,URINE YELLOW (YELLOW); LEUKOCYTE ESTERASE ,URINE Negative (NEGATIVE); NITRITE, URINE Negative (NEGATIVE); PH,URINE 6.5 (5.0-8.0); PROTEIN,URINE Negative (NEGATIVE); UGLUCOSE Negative (NEGATIVE); UROBILINOGEN,URINE 0.2 EU/dL (0.2)
--- NOTE | 2021-04-08 22:19 | NUR ---
rad at bed side
[2021-04-08] MEDS ORDERED: MINERAL OIL 133 ML (PYXIS) 1 EA ENEMA RC ONE ×2 (22:30→22:55)
[2021-04-08] MEDS ORDERED: DOCU-141 PO (22:43)
[2021-04-08] MEDS ORDERED: POLY17PO4 PO (22:43)
--- NOTE | 2021-04-08 23:40 | NUR ---
Patient discharged to home in stable condition. Written and verbal after care instructions given. Patient verbalizes understanding of instruction.
[2021-04-08 23:41] VITALS: BP 133/78
== END 2021-04-08 23:45 | disposition home or self-care (01) ==
LOC: ER 19:31
DX: K59.00 Constipation, unspecified (principal); I10 Essential (primary) hypertension; Z98.890 Other specified postprocedural states; Z79.899 Other long term (current) drug therapy
CPT/HCPCS: 36415; 74018; 80048-TC; 80076-TC; 83690-TC; 85025-TC